=== PATIENT | female | born 1955 | race Caucasian/White ===

== ENCOUNTER 2018-06-07 18:12 | Inpatient (IN) | payer OTHER ==
[~2018-06-07] VITALS: Ht 157.5 cm; Wt 65.8 kg
[~2018-06-07 18:12] MED LIST: LISINOPRIL-HCT1 EAC1 PO; LISINOPRIL20 MG PO; MOTRIN 600 MG600 MG PO; PERCOCET 325 MG1 TA2 PO; PREDNISONE10 M2 PO
[2018-06-07 18:49] LABS: ABSOLUTE BASOPHIL COUNT 0 /CUMM (0.0-0.2); ABSOLUTE EOSINOPHIL COUNT 0 /CUMM (0.0-0.7); ABSOLUTE GRANULOCYTE CT 3.9 /CUMM (1.4-6.5); ABSOLUTE LYMPH COUNT 0.9 /CUMM (1.2-3.4); ABSOLUTE MONOCYTE COUNT 0.8 /CUMM (0.10-0.60); BASOPHIL % 0.2 % (0.0-2.0); EOSINOPHIL % 0.4 % (0-5); GRANULOCYTE % 70.3 % (42.2-75.2); HEMATOCRIT 45.9 % (37-47); MEAN CORPUSCULAR HGB 31.2 PG (27.0-31.0); MEAN CORPUSCULAR HGB CONC 34.4 G/DL (33.0-37.0); MEAN CORPUSCULAR VOLUME 90.7 FL (81.0-99.0); MEAN PLATELET VOLUME 7.6 FL (7.4-10.4); PLATELET COUNT 191 /CUMM (130-400); RBC DISTRIBUTION WIDTH 13.1 % (11.5-14.5); RED BLOOD CELL CT 5.06 /CUMM (4.20-5.40); WHITE BLOOD CELL COUNT 5.6 /CUMM (4.8-10.8)
--- NOTE | 2018-06-07 19:32 | ED GENERAL ADULT ---
History of Present Illness General Chief Complaint: General Adult Stated Complaint: PT IS HEARING THINGS POSSIBLE UTI Source: patient, family, old records Exam Limitations: no limitations Vital Signs & Intake/Output Vital Signs & Intake/Output Vital Signs Date Time Temp Pulse Resp B/P B/P Pulse O2 O2 Flow FiO2 Mean Ox Delivery Rate 06/07 1819 98.5 105 18 139/93 92 Room Air Allergies Coded Allergies: Penicillins (Severe, RASH/HIVES 05/08/16) Reconcile Medications Lisinopril/Hydrochlorothiazide (Lisinopril-Hctz 20-25 MG Tab) 1 EACH TABLET 1 TAB PO DAILY HEART (Reported) Prednisone 10 MG TABLET 1 TAB PO DAILY ANGIOEDEMA TAKE 4 TABS FOR 3 DAYS THEN TAKE 3 TABS FOR 3 DAYS THEN TAKE 2 TABS FOR 3 DAYS THEN TAKE 1 TAB FOR 3 DAYS Triage Note: PT STATES SHE STOPPED DRINKING TODAY IS THE 5TH DAY. PT STATES SHE IS HEARING THINGS AND SHE IS NOT SLEEPING THAT GREAT. PT STATES SHE ISN'T EATING EITHER. PT HAS BEEN DRINKING PLENTY OF WATER. PT ADMITS TO DRINKING 24 PACK A BEER DAILY. Triage Nurses Notes Reviewed? yes HPI: Patient is a heavy drinker and she stopped drinking approximately 5 days ago. Since then she has only been drinking water since she has no appetite. She denies any nausea or vomiting. Son states that over the past 3 nights she has been having increasing hallucinations and is To the Point That at 2:00 in the Morning Here to Take Her outside to Her That Nobody Was Trying to Break in the House. Patient Has Been Tremulous. Her Son Is Very Concerned for Her so He Brought Her in for Evaluation. Past History Travel History Traveled to [place] past 21 day No Medical History Any Pertinent Medical History? 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 No Review of Systems Review of Systems Constitutional: Reports: no symptoms. EENTM: Reports: no symptoms. Respiratory: Reports: no symptoms. Cardiovascular: Reports: no symptoms. GI: Reports: no symptoms. Genitourinary: Reports: no symptoms. Musculoskeletal: Reports: no symptoms. Skin: Reports: no symptoms. Neurological/Psychological: Reports: see HPI. Hematologic/Endocrine: Reports: no symptoms. Immunologic/Allergic: Reports: no symptoms. All Other Systems: Reviewed and Negative Physical Exam Physical Exam General Appearance: well developed/nourished, alert, awake, anxious, moderate distress Head: atraumatic, normal appearance Eyes: Bilateral: PERRL, EOMI. Ears, Nose, Throat: normal pharynx, normal ENT inspection, hearing grossly normal Neck: normal inspection, supple, full range of motion Respiratory: normal breath sounds, chest non-tender, no respiratory distress, lungs clear Cardiovascular: normal peripheral pulses, tachycardia Gastrointestinal: normal bowel sounds, soft, non-tender, no organomegaly Back: normal inspection, normal range of motion Extremities: normal inspection, normal capillary refill, normal range of motion, no edema Neurologic/Psych: no motor/sensory deficits, awake, alert, oriented x 3, normal gait, normal mood/affect Skin: intact, normal color, warm/dry Lymphatic: no anterior cervical steven Core Measures ACS in differential dx? No CVA/TIA Diagnosis: No Sepsis Present: No Sepsis Focused Exam Completed? No Progress Differential Diagnoses I considered the following diagnoses in my evaluation of the patient: [Delirium in the setting of hyponatremia, alcohol withdrawal, electrolyte abnormality] Plan of Care: Orders Procedure Date/time Status CULTURE,URINE 06/07 2027 Active Pathway - chart 06/07 2008 Active Pathway - chart 06/07 2006 Active Patient Data 06/07 2006 Active Code Status 06/07 2006 Active Lab Add-on Test 06/07 1958 Active Patient Data 06/07 1953 Active Admit to inpatient 06/07 1950 Active Add-on Test (ER Only) 06/07 1950 Active Add-on Test (ER Only) 06/07 193 Active URINE LYTES, SPOT 06/07 193 Active EKG 06/07 193 Active URIC ACID 06/07 1827 Active THYROID STIMULATING HORMONE 06/07 182 Active TROPONIN LEVEL 06/07 182 Active SERUM OSMOLALITY 06/07 182 Active MAGNESIUM 06/07 1827 Active CORTISOL PM 06/07 182 Active URINALYSIS 06/07 1821 Complete ETHANOL 06/07 1821 Active COMPREHENSIVE METABOLIC PANEL 06/07 1821 Active CBC WITHOUT DIFFERENTIAL 08/27 1821 Complete House Staff 06/07 UNK Active Lab Add-on Test 06/07 UNK Active VTE Mechanical Prophylaxis 06/07 UNK Active CIWA 06/07 UNK Active Current Medications Sig/Melissa Start time Last Medication Dose Stop Time Status Admin Acetaminophen 650 MG Q6P PRN 06/07 2015 UNVr (Tylenol) Acetaminophen 1,000 MG Q6P PRN 06/07 2015 UNVr (Ofirmev) Cyanocobalamin/ 1 BAG ONCE ONE 06/07 1945 AC Thiamine/Pyridoxine 06/08 344 (Vitamin in I.V.) Sodium Chloride 1,000 ML (Normal Saline 0.9%) Sodium Chloride 1,000 ML ONCE ONE 06/07 1945 AC (Normal Saline 0.9%) 06/08 0224 Laboratory Tests 06/07/182005: Serum Osmolality Cancelled, Uric Acid Cancelled, Cortisol AM Sample Cancelled, Ur Random Creatinine Cancelled, Ur Random Sodium Cancelled, Ur Random Potassium Cancelled, Fraction Sodium Excret Cancelled 06/07/187: Anion Gap 14, Estimated GFR > 60, BUN/Creatinine Ratio 12.9, Glucose 127 H, Serum Osmolality Pending, Uric Acid Pending, Calcium 10.2, Magnesium 1.8, Total Bilirubin 1.9 H, AST 49 H, ALT 45, Alkaline Phosphatase 93, Troponin I 0.02, Total Protein 8.1, Albumin 4.7, Globulin 3.4, Albumin/Globulin Ratio 1.4, TSH 2.340, Cortisol PM Sample Pending, CBC w Diff NO MAN DIFF REQ, RBC 5.06, MCV 90.7, MCH 31.2 H, MCHC 34.4, RDW 13.1, MPV 7.6, Gran % 70.3, Lymphocytes % 15.3 L, Monocytes % 13.8 H, Eosinophils % 0.4, Basophils % 0.2, Absolute Granulocytes 3.9, Absolute Lymphocytes 0.9 L, Absolute Monocytes 0.8 H, Absolute Eosinophils 0, Absolute Basophils 0, Serum Alcohol < 10.0, Urinalysis LIGHT H, Urine Color YEL, Urine Clarity CLEAR, Urine pH 7.0, Ur Specific [place] 1.020, Urine Protein NEG, Urine Ketones TRACE H, Urine Nitrite NEG, Urine Bilirubin NEG, Urine Urobilinogen 1.0, Ur Leukocyte Esterase NEG, Ur Microscopic SEDIMENT EXAMINED, Urine RBC 1-3, Urine WBC 1-3 H, Ur Epithelial Cells RARE, Urine Bacteria FEW H, Urine Hemoglobin TRACE-INTACT, Urine Glucose NEG 06/07/181824: Ur Random Creatinine 62.1, Ur Random Sodium 71, Ur Random Potassium 66.8, Fraction Sodium Excret Pending Microbiology 06/07 1827 URINE ROUT: Urine Culture - RECD Diagnostic Imaging: Viewed by Me: Radiology Read. Discussed w/RAD: Radiology Read. Initial ED EKG: NSR, LVH, nonspecific ST T wave chg Prior EKG: unchanged Rhythm Strip: normal sinus rhythm Departure Departure Disposition: STILL A PATIENT Condition: Critical Clinical Impression Primary Impression: Acute delirium Secondary Impressions: Alcohol withdrawal, Hypokalemia, Hyponatremia Referrals: Michelle Davila APRN (PCP/Family) Departure Forms: Customer Survey General Discharge Information Admission Note Spoke With: Mary Lou Blount MD Documentation of Exam: Documentation of any treatments & extenuating circumstances including Concerns Regarding Discharge (functional status, medication knowledge or non-compliance, living conditions, etc.) that warrant an admission rather than observation: [ICU ADMISSION, SODIUM REPLACEMENT,POTASSIUM REPLACEMENT, ATIVAN PER MARGARITA, SOCIAL WORK CONSULT, RENAL CONSULT] Critical Care Note Critical Care Note Critical Care Time: mins: (90 min)
[2018-06-07 19:40] VITALS: BP 148/76
--- NOTE | 2018-06-07 19:57 | History & Physical ---
Sherlyn Mckeon MD 06/07/181955: General Information and HPI MD Statement: I have seen and personally examined HEMA TEE and documented this H&P. The patient is a 62 year old F who presented with a patient stated chief complaint of [hearing things]. Source of Information: patient, old records, EMS Exam Limitations: no limitations History of Present Illness: Patient is a 62 YO F with PMH significant for HTN, active smoking and alcohol consumption presented to [place] with hearing voices. Patient had long standing history of alcohol consumption, ON and OFF multiple times. She started drinking this time for the past 7-10months per son, she stopped all of a suddden 5 days ago. She was unable to eat well and started drinking lot of water since then. She usually drinks 6-12pack beers each day. She only sustained tremulousness after her abstinence, denies any loss of consiousness, seizures, headache, feeling heart rate, sweating. Per son yesterday night she woke him around 10pm saying that she hears landlord screaming out. He brought her out saying no one is there. According to him this is going on for the past 5 days on and off, never had similar episodes in the past. PMH HTN Large mole removed from right hand 2-3 yrs ago due to concern of malignancy smoking Alcohol Allergies Amoxicillin Medications Amlodipine 10mg daily HCTZ 25mg daily Surgery Appendectomy Allergies/Medications Allergies: Coded Allergies: Penicillins (Severe, RASH/HIVES 05/08/16) Home Med list Amlodipine Besylate 10 MG TABLET 1 TAB PO DAILY blood pressure (Reported) Hydrochlorothiazide 25 MG TABLET 1 TAB PO DAILY blood pressure (Reported) Compliance With Home Meds: GOOD Past History Travel History Traveled to [place] past 21 day No Medical History Neurological: NONE EENT: NONE Cardiovascular: hypertension Respiratory: NONE Gastrointestinal: NONE Hepatic: NONE Renal: NONE Musculoskeletal: NONE Psychiatric: alcohol dependence Endocrine: NONE Blood Disorders: NONE Cancer(s): 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 Home Who Do You Live With? son Services at Home: None Smoking Status: Current Everyday Smoker ETOH Use: alcoholic Illicit Drug Use: denies illicit drug use Functional Ability ADLs Independent: dressing, eating, toileting, bathing. Ambulation: independent IADLs Needs Assist: shopping, housework, finances, food prep, telephone, transportation, medication admin. Review of Systems Review of Systems Constitutional: Reports: see HPI. EENTM: Reports: see HPI. Cardiovascular: Reports: see HPI. Respiratory: Reports: see HPI. GI: Reports: see HPI. Exam & Diagnostic Data Last 24 Hrs of Vital Signs/I&O Vital Signs Date Time Temp Pulse Resp B/P B/P Pulse O2 O2 Flow FiO2 Mean Ox Delivery Rate 06/07 1819 98.5 105 18 139/93 92 Room Air Physical Exam General Appearance Alert, Oriented X3, Cooperative Skin No Rashes, multiple skin tags on face, moles on her back Skin Temp/Moisture Exam: Warm/Dry Sepsis Skin Exam (color): Normal for Ethnicity HEENT Atraumatic, PERRLA Neck Supple, No JVD Cardiovascular Regular Rate, Normal S1, Normal S2 Lungs Clear to Auscultation, Normal Air Movement Abdomen Normal Bowel Sounds, Soft, No Tenderness Neurological Normal Speech, Strength at 5/5 X4 Ext, Normal Tone, Sensation Intact Extremities No Clubbing, No Cyanosis, No Edema Vascular Normal Pulses, Pulses Symmetrical Body Front and Back (Adult) 1) multiple skin tags 2) multiple moles - normal color, size Last 24 Hrs of Labs/Dav: Laboratory Tests 06/07/182052: Methadone Screen Cancelled, Barbiturate Screen Cancelled, Ur Phencyclidine Scrn Cancelled, Amphetamines Screen Cancelled, U Benzodiazepines Scrn Cancelled, Urine Cocaine Screen Cancelled, Urine Cannabis Screen Cancelled 06/07/182005: Serum Osmolality Cancelled, Uric Acid Cancelled, Cortisol AM Sample Cancelled, Ur Random Creatinine Cancelled, Ur Random Sodium Cancelled, Ur Random Potassium Cancelled, Fraction Sodium Excret Cancelled 06/07/181826: Haptoglobin Pending 06/07/181826: Anion Gap 14, Estimated GFR > 60, BUN/Creatinine Ratio 12.9, Glucose 127 H, Serum Osmolality 240 L, Uric Acid 4.7, Calcium 10.2, Magnesium 1.8, Total Bilirubin 1.9 H, Direct Bilirubin 0.6 H, AST 49 H, ALT 45, Alkaline Phosphatase 93, Lactate Dehydrogenase 389, Troponin I 0.02, Total Protein 8.1, Albumin 4.7, Globulin 3.4, Albumin/Globulin Ratio 1.4, TSH 2.340, Cortisol PM Sample 16.4 H, CBC w Diff NO MAN DIFF REQ, RBC 5.06, MCV 90.7, MCH 31.2 H, MCHC 34.4, RDW 13.1, MPV 7.6, Gran % 70.3, Lymphocytes % 15.3 L, Monocytes % 13.8 H, Eosinophils % 0.4, Basophils % 0.2, Absolute Granulocytes 3.9, Absolute Lymphocytes 0.9 L, Absolute Monocytes 0.8 H, Absolute Eosinophils 0, Absolute Basophils 0, Serum Alcohol < 10.0, Urinalysis LIGHT H, Urine Color YEL, Urine Clarity CLEAR, Urine pH 7.0, Ur Specific [place] 1.020, Urine Protein NEG, Urine Ketones TRACE H, Urine Nitrite NEG, Urine Bilirubin NEG, Urine Urobilinogen 1.0 , Ur Leukocyte Esterase NEG, Ur Microscopic SEDIMENT EXAMINED, Urine RBC 1-3, Urine WBC 1-3 H, Ur Epithelial Cells RARE, Urine Bacteria FEW H, Urine Hemoglobin TRACE-INTACT, Urine Glucose NEG 06/07/18 1825: Urine Opiates Screen < 100, Methadone Screen < 40, Barbiturate Screen < 60, Ur Phencyclidine Scrn < 6.00, Amphetamines Screen < 100, U Benzodiazepines Scrn < 85, Urine Cocaine Screen < 50, Urine Cannabis Screen < 5.00, Urine Osmolality 399, Ur Random Creatinine 62.1, Ur Random Sodium 71, Ur Random Potassium 66.8, Fraction Sodium Excret 0.7 Microbiology 06/07 2145 UPPER RESP: Surveillance Culture - ORD 06/07 2145 GI: Surveillance Culture - ORD 06/07 182 URINE ROUT: Urine Culture - RECD Assessment/Plan Assessment: Patient is a 60-year-old female with past history significant for HTN on HCTZ, active smoking, active alcohol consumption was brought in by her son to ER with concerns of hearing voices for the past 5 days after stopping alcohol consumption abruptly. She did have tremulousness but denies any episodes of seizures, loss of consciousness, headache, palpitations. Patient is afebrile, heart rate of 105, blood pressure 139/93 mmHg saturating well on room air at presentation. She is alert oriented 3, moist mucous membranes, supple neck, clear lungs, S1, S2 normal, able to move all 4 extremities, normal tone, sensation, CN intact. Labs did show significant chemistry panel - sodium 116, potassium 2.2, chloride 67, bicarbonate 35. Calcium 10.2. Normal White count, H&H 15/45, platelet count of 191. Urinalysis consistent with trace ketones, 1-3 white count. Serum alcohol < 10. Toxic screening negative. Chest x-ray unremarkable. CT head unremarkable. Differential Acute change in mentation probably secondary to hyponatremia. She is alert and oriented and making good converstaions so the concern is active auditory hallucinations which could be due to altered sodium levels other possiblities are schizophrenia (depression episodes in the past), withdrawl related. Ruled out stroke with CT scan of head. Plan Euvolemic Hypotonic hyponatremia Serum osm - 240, urine osm - 399, Urine Na 79. She is on HCTZ but her FeNa <1. Normal renal function, normal glucose levels. Normal TSH and PM cortisol levels. Primary polydipsia and beer potomonia are expected given history of alcohol, tea and toast diet however lab findings are not consistent. Need to rule out malignancy. * Fluid restriction to 800ml * Sodium tablets if continues to get worse * TSH normal, check AM cortisol, check lipid panel in AM * CT scan of head - normal * Consider further evaluation with CT chest/abdomen/pelvis given active smoking * Neurochecks Q1hr * ICU panel Q4hr * Nephrology consult * Ideally should increase 6mEq in the next 24hrs. severe hypokalemia K of 2.2 at admission, probably due to alcohol related damage to renal tubules. * Aggressive repletion orally - Goal > 3.5 * Monitor for arrhythmia with continuous telemetry. Auditory hallucinations Probably due to decreased sodium levels. Other possiblities are withdrawl, ingestion of other drugs. Normal TSH. Physical exam completely normal. During my interaction she did not have any active hallucinations. * Neurochecks * Psych consult if persists * check TSH and cortisol levels Alcohol withdrawl 6-12 packs per day. No active signs of withdrawl except for tremulousness. * [facility] protocol - diagnostic * Thiamine/folic acid/multivitamin * No concern of wernikes at the moment but will proceed with high dose of thiamine active smoking * Nicotine patch HTN * Hold thiazide * Continue amlodipine for now Elevated bicarbonate level Hco3 level of 35. This is likely from hypokalemia, other possiblities are contraction alkalosis from diuretics. Patient appears euvolemic to me. Normal renal function. * Monitor with serial labs * If continues to get worse will consider carbonic anhydrase inhibitors. DVT prophylaxis SC heparin Code status Full code As Ranked By This Provider Problem List: 1. Hyponatremia 2. Alcohol withdrawal 3. Hypokalemia 4. Acute delirium Core Measures/Misc (06/28) Acute Coronary Syndrome ACS Diagnosis: No Congestive Heart Failure Congestive Heart Failure Diagnosis No Cerebrovascular Accident CVA/TIA Diagnosis: No VTE (View Protocol) VTE Risk Factors Acute Medical Illness No Mechanical VTE Prophylaxis d/t N/A MechProphylax Ordered No VTE Pharm Prophylaxis d/t NA PharmProphylax ordered Sepsis (View protocol) Sepsis Present: No If YES complete Sepsis Event Note If YES complete Sepsis Event Note Resident Review Statement Resident Statement: examined this patient, discussed with engineering intern, agreed with engineering intern, discussed with family, reviewed EMR data (avail), discussed with nursing , discussed with case mgmt, reviewed images, amended to note Other Findings: as above [facility]07[facility]18 2311: Core Measures/Misc (06/28) Sepsis (View protocol) If YES complete Sepsis Event Note If YES complete Sepsis Event Note Attending MD Review Statement Attending Statement Attending MD Statement: examined this patient, discuss w/resident/PA/DUMPER BULK SYSTEM, agreed w/resident/PA/DUMPER BULK SYSTEM, reviewed EMR data (avail) Attending Assessment/Plan: 62F PMH HTN, EtOH abuse presenting with 2 days of anxiety, tremor, and episodes of confusion. Patient is currently A&Ox3 and seems well, but per family she had some episodes where she thought she saw things that weren't there. She had stopped drinking 5 days prior. She voices no complaints at this time. Her physical exam is normal. Sodium was found to be 116, potassium 2.2. Serum osm are dilute, urine 399. No evidence of seizure like activity. 1. Acute hyponatremia 2. Hypokalemia 3. Alcohol withdrawal, uncomplicated Plan - Admit to ICU - Check BEP q4h - Fluid restriction - Full diet - Replete potassium aggressively - Nephrology consult - Ativan PRN CIWA - Stop thiazide - Calculate FE(Urea) - DVT PPx
--- NOTE | 2018-06-07 20:27 | RADIOLOGY REPORT ---
EXAMINATION: XR PORTABLE CHEST CLINICAL INFORMATION: Delirium COMPARISON: None TECHNIQUE: Portable frontal view of the chest was obtained. 7:47 PM FINDINGS: Exam is apical lordotic. Lungs are clear. No pulmonary vascular congestion. There is no pleural effusion. The heart size is normal. The cardiac and mediastinal contours are normal. There are calcifications of the thoracic aorta. There are multilevel degenerative changes of dorsal spine. IMPRESSION: Unremarkable examination.
[2018-06-07 20:40] VITALS: BP 148/76
[2018-06-07 21:40] VITALS: BP 127/72
--- NOTE | 2018-06-07 21:56 | CT SCAN REPORT ---
EXAMINATION: CT HEAD WITHOUT CONTRAST CLINICAL INFORMATION: Hypernatremia. Evaluate for malignancy, edema, or stroke. COMPARISON: CT head 03/12/2016. TECHNIQUE: Contiguous axial imaging was performed from the skull base to vertex without intravenous administration of contrast. DLP: 598.20 mGy-cm FINDINGS: There is no acute intracranial hemorrhage or abnormal extra-axial collection. No intracranial mass effect or midline shift. Lateral and third ventricles are proportionate to the subarachnoid spaces. No hydrocephalus. Gardner-white matter differentiation is grossly preserved and there is no evidence of acute territorial infarct. The calvarium and skull base are intact. Mastoid air cells and middle ear cavities are well aerated. Visualized paranasal sinuses are well aerated. IMPRESSION: Unremarkable CT scan of the head. No evidence of acute territorial infarct or hemorrhage.
[2018-06-07 22:30] VITALS: BP 120/70
[2018-06-07] MEDS ORDERED: HYDROCHLOROTHIA25 M1 PO (22:34)
[2018-06-07] MEDS ORDERED: AMLODIPINE BESY10 M1 PO (22:34)
--- NOTE | 2018-06-07 23:14 | Admission Certification ---
Admission Certification Certification Statement - As attending physician, I certify that at the time of - admission, based on clinical presentation, severity of - symptoms, need for further diagnostic testing and - therapeutic interventions, and risk of adverse outcomes - without in-hospital treatment, in my clinical assessment, - this patient requires an acute hospital stay for a minimum - of two nights or longer. I have also considered psychsocial - factors such as support system, advanced age, financial - issues, cognitive issues, and failed out-patient treatments, - past re-admission history, safety of patient, and lack of - compliance as applicable. Specific rationale supporting this admission is: Sodium 116 with confusion
[2018-06-08] VITALS (8 sets, daily range): BP systolic 112–133; BP diastolic 64–80
--- NOTE | 2018-06-08 07:34 | Cons- CRCU ---
See Addendum General Information and HPI Consulting Request Date of Consult: 06/08/18 Requested By: Jose Alejandro JUÁREZ Source of Information: patient, old records History of Present Illness: Patient is a 62 YO F with PMH significant for HTN, active smoking and alcohol consumption presented to [facility] with hearing voices. Patient had long standing history of alcohol consumption, ON and OFF multiple times. She started drinking this time for the past 7-10months per son, she stopped all of a suddden 5 days ago. She was unable to eat well and started drinking lot of water since then. She usually drinks 6-12pack beers each day. She only sustained tremulousness after her abstinence, denies any loss of consiousness, seizures, headache, feeling heart rate, sweating. Per son yesterday night she woke him around 10pm saying that she hears landlord screaming out. He brought her out saying no one is there. According to him this is going on for the past 5 days on and off, never had similar episodes in the past. ON MY EVALUATION: Patient states that she has been drinking for the past 7-10 months roughly 6-12 beers a day, and quit cold tukery 6 days ago. After quitting, she had nausea and did not want to eat much, and so drank roughly 10 small water bottles a day which is double her normal intake of 5 small water bottles. She also states that she had started HCTZ several months ago and never had electrolytes checked. She denies any current complaints, states that she has not had any auditory or visual hallucinations and has been scoring low on CIWA score. She denies fevers, chills, night sweats, weight loss, blurred vision, chest pains, shrotness of breath, abdominal pains, urinary symptoms, lower extremity swelling. I SPOKE WITH sister over the phone today. Per sister, patient was seen shaking and losing weight 2 weeks ago when sister last saw her. Patients last year and she has been recieving his social security payments and thus has been drinking more as she can afford more beer per sister. Normally patient and sister talk 2-3x/week over the phone, but patient stopped calling sister 1 week ago. Sister had talked to patients son who said that his mother was hallucinating, and sister encouraged the son to take patient to the ED. Sister is Stella Brock, cell phone [phone] ; house phone [phone]. Allergies/Medications Allergies: Coded Allergies: Penicillins (Severe, RASH/HIVES 05/08/16) Home Med List: Amlodipine Besylate 10 MG TABLET 1 TAB PO DAILY blood pressure (Reported) Hydrochlorothiazide 25 MG TABLET 1 TAB PO DAILY blood pressure (Reported) Current Medications: Current Medications Sig/Melissa Start time Last Medication Dose Route Stop Time Status Admin Acetaminophen 650 MG Q6P PRN 06/07 2015 AC PO Acetaminophen 1,000 MG Q6P PRN 06/07 2015 AC IV Amlodipine Besylate 10 MG DAILY 06/08 0900 AC 06/08 PO 0843 Cyanocobalamin/ 1 BAG ONCE ONE 06/07 194 CAN Thiamine/Pyridoxine IV 06/08 0344 Sodium Chloride 1,000 ML Desmopressin Acetate 0.1 MG ONCE ONE 06/08 1030 DC PO 06/08 1031 Folic Acid 1 MG DAILY 06/08 09 AC PO Heparin Sodium 5,000 UNIT Q8 06/07 2200 AC 06/08 (Porcine) SC 0545 Lorazepam 0 .STK-MED ONE 06/07 1958 DC .ROUTE Lorazepam 1 MG ONCE ONE 06/07 1945 DC 06/07 IV 06/07 1942004 Magnesium Oxide 400 MG ONE ONE 06/07 2345 CAN PO 06/07 2346 Magnesium Sulfate 1 GM ONCE ONE 06/07 2100 CAN Dextrose/Water 100 ML IV 06/08 0059 Magnesium Sulfate 0 .STK-MED ONE 06/07 2024 DC .ROUTE Multivitamins 1 TAB DAILY 06/08 0915 AC PO Nicotine 21 MG DAILY 06/08 09 AC TOP Potassium Chloride 40 MEQ ONCE ONE 06/08 2345 CAN PO 06/08 2346 Potassium Chloride 10 MEQ Q1H 06/08 0630 DC 06/08 IV 06/08 0731 0709 Potassium Chloride 40 MEQ Q1 06/08 0530 DC 06/08 PO 06/08 0701 0713 Potassium Chloride 40 MEQ ONCE ONE 06/08 0430 DC 06/08 PO 06/08 0431 0545 Potassium Chloride 40 MEQ ONCE ONE 06/08 0300 DC 06/08 PO 06/08 0301 0449 Potassium Chloride 40 MEQ ONCE ONE 06/08 0200 DC 06/08 PO 06/08 0201 0449 Potassium Chloride 40 MEQ ONCE ONE 06/08 0100 DC 06/08 PO 06/08 0101 0153 Potassium Chloride 40 MEQ ONCE ONE 06/08 0030 DC 06/08 PO 06/08 0031 0000 Potassium Chloride 0 .STK-MED ONE 06/07 2351 DC PO Potassium Chloride 40 MEQ ONCE ONE 06/07 2130 DC PO 06/07 213 Potassium Chloride 40 MEQ ONCE ONE 06/07 2100 DC 06/07 PO 06/07 2101 2355 Potassium Chloride 40 MEQ ONCE ONE 06/07 2100 CAN PO 06/07 2101 Potassium Chloride 0 .STK-MED ONE 06/07 2030 DC PO Potassium Chloride 40 MEQ ONCE ONE 06/07 1945 DC 06/07 PO 06/07 1946 2005 Potassium Chloride 10 MEQ ONCE ONE 06/07 1945 DC 06/07 IV 06/07 Potassium Chloride 10 MEQ ONCE ONE 06/07 194 DC 06/07 IV 06/07 1946 2143 Sodium Chloride 1,000 ML ONCE ONE 06/07 1945 CAN IV 06/08 0224 Thiamine HCl 100 MG TID 06/07 2241 AC 06/08 Sodium Chloride 50 ML IV 06/10 1459 0914 Thiamine HCl 0 .STK-MED ONE 06/077 DC .ROUTE Review of Systems Review of Systems Constitutional: Reports: see HPI, weakness, unexplained weight loss (per sister). Denies: chills, diaphoresis, fever, malaise. EENTM: Denies: blurred vision, double vision, visual changes. Cardiovascular: Denies: chest pain, edema, palpitations, syncope. Respiratory: Denies: short of breath, wheezing. GI: Denies: abdominal pain, diarrhea, bowel incontinence. Genitourinary: Denies: dysuria, frequency, hematuria. 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 Home Who Do You Live With? son Services at Home: None Smoking Status: Current Everyday Smoker (40+ pack years) ETOH Use: alcoholic Illicit Drug Use: denies illicit drug use Functional Ability ADLs Independent: dressing, eating, toileting, bathing. Ambulation: independent IADLs Needs Assist: shopping, housework, finances, food prep, telephone, transportation, medication admin. Exam & Diagnostic Data Last 24 Hrs of Vital Signs/I&O Vital Signs Date Time Temp Pulse Resp B/P B/P Pulse O2 O2 Flow FiO2 Mean Ox Delivery Rate 06/08 0857 97.9 65 20 122/74 96 Room Air 06/08 0600 97.7 91 20 130/80 06/08 0400 97.7 91 20 130/80 06/08 0400 99 Room Air 06/08 0200 68 20 124/64 06/08 0000 97.7 88 20 112/72 06/08 0000 97.7 88 20 11272 97 Room Air 06/08 0000 97 Room Air 06/07 2230 97.3 80 18 120/70 06/07 2230 97 Room Air 06/07 2140 98.5 83 20 127/72 06/07 2100 98 Room Air 06/07 2050 88 20 148/76 98 Room Air 06/07 2040 99.0 85 18 148/76 06/07 1940 98.7 85 20 148/76 06/07 1819 98.5 105 18 139/93 92 Room Air Intake & Output 06/08 1600 06/08 0800 06/08 0000 Intake Total 425 482 Output Total 1000 250 Balance -575 232 Intake, IV 50 482 Intake, Oral 375 Output, Urine 1000 250 Patient 146 lb Weight Weight Bed scale Measurement Method Physical Exam General Appearance: no apparent distress, alert, comfortable Head: atraumatic, normal appearance Eyes: Bilateral: normal appearance, PERRL, EOMI. Neck: normal inspection Respiratory: no respiratory distress, lungs clear, decreased breath sounds Cardiovascular: regular rate/rhythm, normal peripheral pulses Peripheral Pulses: 2+ dorsalis pedis (R), 2+ dorsalis pedis (L) Gastrointestinal: soft, non-tender Back: normal inspection Extremities: normal inspection Last 48 Hrs of Labs/Dav: Laboratory Tests 06/08/18 0645: Anion Gap 7, Estimated GFR > 60, Glucose 95, Calcium 9.9, Phosphorus 3.3, Magnesium 2.3, Total Bilirubin 2.1 H, AST 50 H, ALT 39, Albumin 4.4, Triglycerides 61, Cholesterol 212 H, LDL Cholesterol, Calc 107, HDL Cholesterol 93 H, Cholesterol/HDL Ratio 2, Cortisol AM Sample 21.9, CBC w Diff NO MAN DIFF REQ, RBC 4.75, MCV 90.2, MCH 31.6 H, MCHC 35.0, RDW 13.3, MPV 7.9, Gran % 58.3, Lymphocytes % 23.1, Monocytes % 16.3 H, Eosinophils % 1.7, Basophils % 0.6, Absolute Granulocytes 2.1, Absolute Lymphocytes 0.8 L, Absolute Monocytes 0.6, Absolute Eosinophils 0.1, Absolute Basophils 0, Hepatitis A IgM Ab NONREACTIVE, Hep Bs Antigen NONREACTIVE, Hep B Core IgM Ab Conf NONREACTIVE, Hepatitis C Antibody NONREACTIVE 06/08/18 0230: Anion Gap 9, Estimated GFR > 60, Glucose 100 H, Calcium 9.5, Phosphorus 3.7, Magnesium 2.2, Total Bilirubin 1.9 H, Direct Bilirubin 0.5 H, AST 46 H, ALT 38, Alkaline Phosphatase 82, Albumin 4.2 06/07/18 2300: Anion Gap 10, Estimated GFR > 60, Glucose 109 H, Calcium 9.6, Phosphorus 3.6, Magnesium 2.2, Total Bilirubin 1.8 H, AST 42 H, ALT 39, Albumin 4.1, Free T4 1.46 06/07/182052: Methadone Screen Cancelled, Barbiturate Screen Cancelled, Ur Phencyclidine Scrn Cancelled, Amphetamines Screen Cancelled, U Benzodiazepines Scrn Cancelled, Urine Cocaine Screen Cancelled, Urine Cannabis Screen Cancelled 06/07/182005: Serum Osmolality Cancelled, Uric Acid Cancelled, Cortisol AM Sample Cancelled, Ur Random Creatinine Cancelled, Ur Random Sodium Cancelled, Ur Random Potassium Cancelled, Fraction Sodium Excret Cancelled 06/07/18 1827: Haptoglobin Pending 06/07/18 1827: Anion Gap 14, Estimated GFR > 60, BUN/Creatinine Ratio 12.9, Glucose 127 H, Serum Osmolality 240 L, Uric Acid 4.7, Calcium 10.2, Magnesium 1.8, Total Bilirubin 1.9 H, Direct Bilirubin 0.6 H, AST 49 H, ALT 45, Alkaline Phosphatase 93, Lactate Dehydrogenase 389, Troponin I 0.02, Total Protein 8.1, Albumin 4.7, Globulin 3.4, Albumin/Globulin Ratio 1.4, TSH 2.340, Cortisol PM Sample 16.4 H, CBC w Diff NO MAN DIFF REQ, RBC 5.06, MCV 90.7, MCH 31.2 H, MCHC 34.4, RDW 13.1, MPV 7.6, Gran % 70.3, Lymphocytes % 15.3 L, Monocytes % 13.8 H, Eosinophils % 0.4, Basophils % 0.2, Absolute Granulocytes 3.9, Absolute Lymphocytes 0.9 L, Absolute Monocytes 0.8 H, Absolute Eosinophils 0, Absolute Basophils 0, Serum Alcohol < 10.0, Urinalysis LIGHT H, Urine Color YEL, Urine Clarity CLEAR, Urine pH 7.0, Ur Specific Mcgrath 1.020, Urine Protein NEG, Urine Ketones TRACE H, Urine Nitrite NEG, Urine Bilirubin NEG, Urine Urobilinogen 1.0 , Ur Leukocyte Esterase NEG, Ur Microscopic SEDIMENT EXAMINED, Urine RBC 1-3, Urine WBC 1-3 H, Ur Epithelial Cells RARE, Urine Bacteria FEW H, Urine Hemoglobin TRACE-INTACT, Urine Glucose NEG 06/07/18 1825: Urine Opiates Screen < 100, Methadone Screen < 40, Barbiturate Screen < 60, Ur Phencyclidine Scrn < 6.00, Amphetamines Screen < 100, U Benzodiazepines Scrn < 85, Urine Cocaine Screen < 50, Urine Cannabis Screen < 5.00, Urine Osmolality 399, Ur Random Creatinine 62.1, Ur Random Sodium 71, Ur Random Potassium 66.8, Fraction Sodium Excret 0.7 Assessment/Plan CRCU Impression/Plan: 62 YO F with PMH significant for HTN on HCTZ, active smoking and alcohol consumption presented to [place] with hearing voices. Recently self-detoxed at home 6 days ago after drinking 6-12 beers a day x 7-10 months, and drank copious amounts of water, roughly 10 small bottles a day whereas normally drinks 5. Is no longer complaining of hallucinations and denies any weakness, tremors, anxiety. In ICU due to hyponatremia, frequent neuro checks given risk of CPM Respiratory: stable, current everyday smoker Sats at 97% on room air; rate of 20 nonlabored. Significant smoking history >40 pack years, CXR negative for masses in ED. 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 Will f/u with ICU lab bundle q4 Cardiovascular: stable Rate 68-105(tachy on admission no other episodes of tachycardia), NSR, 112-148/ 64-80 on amlodipine; HCTZ held; no appreciable murmurs, no edema or JVD noted Hematological: stable H/H 15/42.8 . No evidence of bleeds Metabolic: Hypotonic euvolemic hyponatremia; Hypokalemia; Metabolic Alkalosis, Elevated Liver Enzymes and bilirubin; Hx of Alcoholism -Sodium on presentation was 116. Currently 123; HCTZ is held and is being fluid restricted to 800. Nephro consult is appreciated, will recieve 1mcg subq DDAVP and labs q4. Correct no more than 8mEq/day; Sodium will be partially corrected after correcting potassium. If sodium goes up after administration of DDAVP will start D5W. Thyroid tests WNL; AM cortisol normal. Serum OSM 240; Urine OSM 399, Ajit 79, FeNA <1. -Potassium has been corrected, initially was 2.2, after oral and IV repletion is now 4.3. Phosphorus and magnesium WNL. No EKG changes on admission, but will repeat one to confirm. -Met alkalosis likely 2/2 HCTZ use and contraction alkalosis per discussion at rounds and with nephro, bicarbonate currently 34. Will monitor with ICU bundle q4 -AST at 50, TBili 2.1 and trending upwards; will obtain RUQ U/S. Pt did eat breakfast this AM so likely will happen tomorrow AM. Hepatic panel negative. -Is on Folate and Thiamine given hx of alcoholism. -Will obtain social work consult. Alimentary: stable -Tolerating regular diet Neurological: had auditory hallucination upon admission -Currently denies any tactile/auditory hallucinations -Neuro checks q1 -On CIWA, low scores -CT Head negative for any masses or trauma Nephro: stable -BUN/Cr 8/0.7 ; FeNA 0.7 DVT ppx: ALPS and Subq Heparin FULL CODE Consult Acknowledgment - Thank you for your consult request.
[2018-06-08 08:18] LABS: ABSOLUTE BASOPHIL COUNT 0 /CUMM (0.0-0.2); ABSOLUTE EOSINOPHIL COUNT 0.1 /CUMM (0.0-0.7); ABSOLUTE GRANULOCYTE CT 2.1 /CUMM (1.4-6.5); ABSOLUTE LYMPH COUNT 0.8 /CUMM (1.2-3.4); ABSOLUTE MONOCYTE COUNT 0.6 /CUMM (0.10-0.60); BASOPHIL % 0.6 % (0.0-2.0); EOSINOPHIL % 1.7 % (0-5); GRANULOCYTE % 58.3 % (42.2-75.2); HEMATOCRIT 42.8 % (37-47); MEAN CORPUSCULAR HGB 31.6 PG (27.0-31.0); MEAN CORPUSCULAR VOLUME 90.2 FL (81.0-99.0); MEAN PLATELET VOLUME 7.9 FL (7.4-10.4); PLATELET COUNT 178 /CUMM (130-400); RBC DISTRIBUTION WIDTH 13.3 % (11.5-14.5); RED BLOOD CELL CT 4.75 /CUMM (4.20-5.40); WHITE BLOOD CELL COUNT 3.6 /CUMM (4.8-10.8)
--- NOTE | 2018-06-08 10:49 | Cons- Nephrology ---
General Information and HPI Consulting Request Date of Consult: 06/08/18 Requested By: Mary Lou Blount MD Reason for Consult: Hyponatremia History of Present Illness: 62 yo female with history of hypertension, smoking, ethanal abuse admitted with change in mental status. She norally drinks 6-12 beers per day but stopped several days ago. She continued to drink a lot of water. She started hearing voices and was brought to the ED where labs were remarkable for serum sodim of 116, potassiumof 2.2, serum bicarb of 35. Uric acid was 4.7, BUN 9, creatinine of 0.7. She had been started on HCTZ seveal months ago, no follow up labs. Ajit was 71, U k 66.8, U osm 399. Overnight she received potassium replacement and was placed on fluid restriction Allergies/Medications Allergies: Coded Allergies: Penicillins (Severe, RASH/HIVES 05/08/16) Home Med List: Amlodipine Besylate 10 MG TABLET 1 TAB PO DAILY blood pressure (Reported) Hydrochlorothiazide 25 MG TABLET 1 TAB PO DAILY blood pressure (Reported) Current Medications: Current Medications Sig/Melissa Start time Last Medication Dose Route Stop Time Status Admin Acetaminophen 650 MG Q6P PRN 06/07 2015 AC PO Acetaminophen 1,000 MG Q6P PRN 06/07 2015 AC IV Amlodipine Besylate 10 MG DAILY 06/08 09 AC 06/08 PO 0843 Cyanocobalamin/ 1 BAG ONCE ONE 06/07 1945 CAN Thiamine/Pyridoxine IV 06/08 0344 Sodium Chloride 1,000 ML Desmopressin Acetate 0.1 MG ONCE ONE 06/08 1030 DC PO 06/08 1031 Folic Acid 1 MG DAILY 06/08 915 AC PO Heparin Sodium 5,000 UNIT Q8 06/07 2200 AC 06/08 (Porcine) SC 0545 Lorazepam 0 .STK-MED ONE 06/07 1958 DC .ROUTE Lorazepam 1 MG ONCE ONE 06/07 194 DC 06/07 IV 06/07 Magnesium Oxide 400 MG ONE ONE 06/07 2345 CAN PO 06/07 2346 Magnesium Sulfate 1 GM ONCE ONE 06/07 2100 CAN Dextrose/Water 100 ML IV 06/08 0059 Magnesium Sulfate 0 .STK-MED ONE 06/07 2024 DC .ROUTE Multivitamins 1 TAB DAILY 06/08 915 AC PO Nicotine 21 MG DAILY 06/08 0900 AC TOP Potassium Chloride 40 MEQ ONCE ONE 06/08 2345 CAN PO 06/08 2346 Potassium Chloride 10 MEQ Q1H 06/08 0630 DC 06/08 IV 06/08 0731 0709 Potassium Chloride 40 MEQ Q1 06/08 0530 DC 06/08 PO 06/08 0701 0713 Potassium Chloride 40 MEQ ONCE ONE 06/08 0430 DC 06/08 PO 06/08 0431 0545 Potassium Chloride 40 MEQ ONCE ONE 06/08 0300 DC 06/08 PO 06/08 0301 0449 Potassium Chloride 40 MEQ ONCE ONE 06/08 0200 DC 06/08 PO 06/08 0201 0449 Potassium Chloride 40 MEQ ONCE ONE 06/08 0100 DC 06/08 PO 06/08 0101 0153 Potassium Chloride 40 MEQ ONCE ONE 06/08 0030 DC 06/08 PO 06/08 0031 0000 Potassium Chloride 0 .STK-MED ONE 06/07 2351 DC PO Potassium Chloride 40 MEQ ONCE ONE 06/07 2130 DC PO 06/07 213 Potassium Chloride 40 MEQ ONCE ONE 06/07 2100 DC 06/07 PO 06/07 2101 2355 Potassium Chloride 40 MEQ ONCE ONE 06/07 2100 CAN PO 06/07 2101 Potassium Chloride 0 .STK-MED ONE 06/07 2030 DC PO Potassium Chloride 40 MEQ ONCE ONE 06/07 1945 DC 06/07 PO 06/07 1946 2005 Potassium Chloride 10 MEQ ONCE ONE 06/07 1945 DC 06/07 IV 06/07 1946 2005 Potassium Chloride 10 MEQ ONCE ONE 06/07 1945 DC 06/07 IV 06/07 194 2143 Sodium Chloride 1,000 ML ONCE ONE 06/07 1945 CAN IV 06/08 0224 Thiamine HCl 100 MG TID 06/07 2241 AC 06/08 Sodium Chloride 50 ML IV 06/10 1459 0914 Thiamine HCl 0 .STK-MED ONE 06/07 1957 DC .ROUTE Review of Systems Review of Systems: Negative except as noted above. 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 Home Who Do You Live With? son Services at Home: None Smoking Status: Current Everyday Smoker ETOH Use: alcoholic Illicit Drug Use: denies illicit drug use Functional Ability ADLs Independent: dressing, eating, toileting, bathing. Ambulation: independent IADLs Needs Assist: shopping, housework, finances, food prep, telephone, transportation, medication admin. Exam & Diagnostic Data Vital Signs and I&O Vital Signs Date Time Temp Pulse Resp B/P B/P Pulse O2 O2 Flow FiO2 Mean Ox Delivery Rate 06/08 0857 97.9 65 20 122/74 96 Room Air 06/08 0600 97.7 91 20 130/80 06/08 0400 97.7 91 20 130/80 06/08 0400 99 Room Air 06/08 0200 68 20 124/64 06/08 0000 97.7 88 20 112/72 06/08 0000 97.7 88 20 11272 97 Room Air 06/08 0000 97 Room Air 06/07 2230 97.3 80 18 120/70 06/07 2230 97 Room Air 06/07 2140 98.5 83 20 127/72 06/07 2100 98 Room Air 06/07 2050 88 20 148/76 98 Room Air 06/07 2040 99.0 85 18 148/76 06/07 1940 98.7 85 20 148/76 06/07 1819 98.5 105 18 139/93 92 Room Air Intake & Output 06/08 1600 06/08 0400 06/07 1600 06/07 0400 06/06 1600 06/06 0400 Intake Total 425 482 Output Total 1000 250 Balance -575 232 Intake, IV 50 482 Intake, Oral 375 Output, Urine 1000 250 Patient 146 lb Weight Weight Bed scale Measurement Method Physical Exam: NAD VS as above. Eyes: anicteric, PERRLA Neck: no mass or thyromegally Nodes: negative cervical/inguinal Skin: no rash or induration. CV: no rub or murmur Lungs: clear P&A Abd: non-tender, no organomegaly, BS positive Exts: no edema, 1+d pedal pulses Neuro: A&O, CN intact, no asterixis. Assessment/Plan Assessment/Recommendations Assessment: Hyponatremia which may be multifactorial in origin but includes effects of HCTZ, low solute and high fluid intake. Low potassium can cause shift of Na into cells so part of intial correction of Na occurs with potassium repletion, shift of Na back out. Metabolic alkalosis probably driven by diuretics and profound hypokalemia. Urine electrolytes with relatively high U osm, high U Na and U K suggestive of thiazide effect. Recommendations: Main risk is for too rapid correction and CPM. She is already up 7 meq/l from admission and would like to keep her here for another 24 hours before allow her to go up higher. I would therefore give her DDAVP 1 mcg sc now, continue to follow serum sodium every 4 hours. If sodium continues up after DDAVP could give some D5W. After 12-24 hours the DDAVP will wear off and sodium will rise again, but would try not to have it rise by more than 8 in any 24 hour period. Alcoholics are at particular risk for CPM.
--- NOTE | 2018-06-08 16:25 | ULTRASOUND REPORT ---
EXAMINATION: US ABDOMEN LIMITED CLINICAL INFORMATION: Increase in bilirubin. COMPARISON: None. TECHNIQUE: Real-time imaging of the right upper quadrant abdominal viscera was obtained. FINDINGS: PANCREAS: Normal. LIVER: The liver is normal in size and contour. It has diffusely increased echogenicity consistent with hepatic steatosis. There is a cyst in the right lobe of the liver which measures 2.8 x 2.7 x 2.7 cm, and a smaller cyst in the right lobe measures 1.3 x 1.3 x 1.4 cm. The appendix is not dilated. GALLBLADDER: The gallbladder is physiologically distended without evidence of stones, sludge, polyps, wall thickening or pericholecystic fluid. COMMON BILE DUCT: Normal in caliber measuring 0.4 cm in diameter. RIGHT KIDNEY: There is no hydronephrosis. No renal calculi or focal parenchymal lesions. The kidney measures 10.4 cm in maximum dimension. FREE FLUID: None. IMPRESSION: 1. The liver has diffusely increased echogenicity consistent with hepatic steatosis. There are 2 cysts in the right lobe of the liver. 2. The remainder of the study is unremarkable.
[2018-06-09] VITALS (8 sets, daily range): BP systolic 100–140; BP diastolic 60–80
--- NOTE | 2018-06-09 08:09 | PN- Resident CRCU ---
See Addendum Subjective HPI/CRCU Issues: Hypotonic euvolemic hyponatremia 24 Hour Events: Pt was hyperkalemic at 5.8 yesterday with peaked T waves; was given calcium, insulin, and one amp d50. Asymptomatic. Went for RUQ US which showed hepatic steatosis and two cysts. Overnight became agitated, tachycardic, ripped off monitor, attempted to leave without responding to nursing staff instructions to wait. Security was called, patient was placed in emerita, given 1mg ativan. This morning she continues to say that she wants to leave, needs to pay rent and "get things done" and will come back in 2-3 days. Tremulous, anxious. Psychiatry to see her. Denies hearing any voices at this time Objective Vital Signs & I&O Last 8 Hrs of Vitals and I&O: Intake & Output 06/09 1600 Intake Total Output Total Balance Patient 145 lb Weight Exam General Appearance: no apparent distress, alert, awake, anxious, agitated, tremulous Head: atraumatic Neck: normal inspection Respiratory: lungs clear, decreased breath sounds Cardiovascular: regular rate/rhythm Gastrointestinal: soft, non-tender Extremities: normal inspection, no edema Cranial Nerves: normal hearing, normal speech Skin: intact Skin Temp/Moisture Exam: Warm/Dry Sepsis Skin Exam (color): Normal for Ethnicity Current Medications: Current Medications Sig/Melissa Start time Last Medication Dose Route Stop Time Status Admin Acetaminophen 650 MG Q6P PRN 06/07 2015 AC 06/08 PO 2349 Acetaminophen 1,000 MG Q6P PRN 06/07 2015 IV Amlodipine Besylate 10 MG DAILY 06/08 0900 AC 06/09 PO 0909 Calcium Gluconate 1 GM ONCE ONE 06/08 1415 DC 06/08 Sodium Chloride 100 ML IV 06/08 1514 1423 Calcium Gluconate 0 .STK-MED ONE 06/08 1413 DC IV Desmopressin Acetate 1 MCG ONCE ONE 06/08 1115 DC 06/08 SC 06/08 1116 1231 Desmopressin Acetate 0.1 MG ONCE ONE 06/08 1030 CAN PO 06/08 1031 Dextrose 25 GM ONCE ONE 06/08 1415 DC 06/08 IV 06/08 1416 1425 Dextrose 0 .STK-MED ONE 06/08 1415 DC IV Dextrose/Water 1,000 ML Q6H 06/08 1830 DC 06/08 IV 1831 Dextrose/Water 1,000 ML .[id number] 06/08 1715 DC 06/08 IV 06/09 0634 1730 Folic Acid 1 MG DAILY 06/08 0915 AC 06/09 PO 1031 Heparin Sodium 5,000 UNIT Q8 06/07 2200 AC 06/09 (Porcine) SC 0708 Insulin Human Regular 10 UNITS ONCE ONE 06/08 1415 DC 06/08 IV 06/08 1416 1425 Insulin Human Regular 0 .STK-MED ONE 06/08 1414 DC .ROUTE Lorazepam 1 MG ONCE ONE 06/09 0115 DC 06/09 IV 06/09 0116 0119 Lorazepam 0 .STK-MED ONE 06/09 0107 DC .ROUTE Multivitamins 1 TAB DAILY 06/08 0915 AC 06/09 PO 1031 Nicotine 21 MG DAILY 06/08 0900 AC TOP Olanzapine 5 MG ONCE ONE 06/09 0045 DC IM 06/09 0046 Phosphate 250 MG PC AND AT BEDTIME 06/08 2100 DC 06/09 PO 06/09 0901 0909 Sodium Polystyrene 60 ML ONCE ONE 06/08 1730 DC 06/08 Sulfonate PO 06/08 1731 1730 Sodium Polystyrene 0 .STK-MED ONE 06/08 1730 DC Sulfonate .ROUTE Thiamine HCl 100 MG TID 06/07 2241 AC 06/09 Sodium Chloride 50 ML IV 06/10 1459 0910 Impression/Plan Impression/Problem List Impression: 62 YO F with PMH significant for HTN on HCTZ, active smoking and alcohol consumption presented to [facility] with hearing voices. Recently self-detoxed at home 6 days ago after drinking 6-12 beers a day x 7-10 months, and drank copious amounts of water, roughly 10 small bottles a day whereas normally drinks 5. Is no longer complaining of hallucinations and denies any weakness, tremors, anxiety. In ICU due to Hypotonic euvolemic hyponatremia, frequent neuro checks given risk of CPM Respiratory: stable, current everyday smoker Sats at 99% on room air; rate of 18-24 nonlabored. Significant smoking history > 40 pack years, CXR negative for masses in ED. States "I need to go outside and smoke a cigarette". Has nicotine patch on her eMAR. ID: stable Afebrile, hypothermic 96.0. Cardiovascular: stable Rate 56-114, sinus rhythym. Was tachycardic prior to ripping monitor off last night, likely due to agitation. 100-150/60-93 on amlodipine; HCTZ held; no appreciable murmurs, no edema or JVD noted Hematological: stable Metabolic: Hypotonic euvolemic hyponatremia (improving); Hypokalemia (resolved); Hyperkalemia (resolved), Metabolic Alkalosis (resolved), Elevated Liver Enzymes and bilirubin; Hx of Alcoholism -Sodium on presentation was 116. Currently 123; HCTZ is held and is being fluid restricted to 800. Nephro consult is appreciated, received 1mcg subq DDAVP and labs q4. Correct no more than 8mEq/day; Received D5W as sodium went up too high. Currently 123; can go up to 131 today. -Thyroid tests WNL; AM cortisol normal. Serum OSM 240; Urine OSM 399, Ajit 79, FeNA <1. -Potassium has been corrected, initially was 2.2, after oral and IV repletion oscar to 5.8. EKG showed peaked T waves; was given calcium gluconate, insulin and one amp d50. Currently is 4.1. -Phosphorus and magnesium WNL. -Met alkalosis likely 2/2 HCTZ use and contraction alkalosis per discussion at rounds and with nephro, bicarbonate currently 26. Will monitor with ICU bundle q4 -AST at 39, TBili 1.1. RUQ U/S showed hepatic steatosis with 2 liver cysts. Hepatic panel negative. -Is on Folate and Thiamine given hx of alcoholism. -Social work appreciated. Alimentary: stable -Tolerating regular diet Neurological: had auditory hallucination upon admission; 1mg ativan overnight after attempt to leave AMA currently on EMERITA. -Currently on emerita given agitation, unsafe ambulation. PSYCH to see patient to determine capacity to leave AMA -Currently denies any tactile/auditory hallucinations -Neuro checks q1 -On CIWA, low scores -CT Head negative for any masses or trauma Nephro: stable -BUN/Cr 11/0.6 ; FeNA 0.7 DVT ppx: ALPS and Subq Heparin FULL CODE Problem List: 1. Hyponatremia Pain Ratin Tomorrow's Labs & Rationales: ICU Bundle q4 to monitor sodium Plan DVT/Prophylaxis: mechanical, pharmacological
--- NOTE | 2018-06-09 10:58 | PN- Nephrology ---
Assessment/Plan Nephrology Assessment: Hyponatremia due to thiazide, low solute, high water intake. Stable in low 120s since given DDAVP. Can allow to increase up to around 130 today. Suggestion: Keep off DDAVP as effect of one time dose wears off, urine will dilute. Maintain fluid restrciton and q 4 h serum sodiums. Subjective Subjective: Agitated and not talking today although nods head appropriately. Objective Vital Signs and I&Os Vital Signs Date Time Temp Pulse Resp B/P B/P Pulse O2 O2 Flow FiO2 Mean Ox Delivery Rate 06/09 0909 86 120/74 06/09 0600 56 20 100/60 06/09 0400 96.0 56 18 111/73 06/09 0400 99 Room Air 06/09 0200 96.9 92 18 128/76 06/09 0000 97.7 114 20 140/80 06/09 0000 99 Room Air 06/09 0000 97.7 114 20 140/80 99 Room Air 06/08 2200 97.3 62 21 133/75 06/08 2000 97.3 60 20 125/72 06/08 1600 97.5 62 18 122/70 97 Room Air Intake & Output 06/09 1600 06/09 0400 06/08 1600 06/08 0400 06/07 1600 06/07 0400 Intake Total 150 1275 805 482 Output Total 522 162 9636 250 Balance 50 675 -1595 232 Intake, IV 775 150 482 Intake, Oral 150 500 655 Output, Urine 889 334 4654 250 Patient 145 lb 146 lb Weight Weight Bed scale Measurement Method Physical Exam: NAD VS as above Lung: clear CV: no rub Abd: nontender Exts: no edema Neuro : A&O Current Medications: Current Medications Sig/Melissa Start time Last Medication Dose Route Stop Time Status Admin Acetaminophen 650 MG Q6P PRN 06/07 2015 AC 06/08 PO 2349 Acetaminophen 1,000 MG Q6P PRN 06/07 2015 AC IV Amlodipine Besylate 10 MG DAILY 06/08 0900 AC 06/09 PO 0909 Calcium Gluconate 1 GM ONCE ONE 06/08 1415 DC 06/08 Sodium Chloride 100 ML IV 06/08 1514 1423 Calcium Gluconate 0 .STK-MED ONE 06/08 1413 DC IV Desmopressin Acetate 1 MCG ONCE ONE 06/08 1115 DC 06/08 SC 06/08 1116 1231 Desmopressin Acetate 0.1 MG ONCE ONE 06/08 1030 CAN PO 06/08 1031 Dextrose 25 GM ONCE ONE 06/08 1415 DC 06/08 IV 06/08 1416 1425 Dextrose 0 .STK-MED ONE 06/08 1415 DC IV Dextrose/Water 1,000 ML Q6H 06/08 1830 DC 06/08 IV 1831 Dextrose/Water 1,000 ML .[id number] 06/08 1715 DC 06/08 IV 06/09 0634 1730 Folic Acid 1 MG DAILY 06/08 0915 AC 06/09 PO 1031 Heparin Sodium 5,000 UNIT Q8 06/07 2200 AC 06/09 (Porcine) SC 0708 Insulin Human Regular 10 UNITS ONCE ONE 06/08 1415 DC 06/08 IV 06/08 1416 1425 Insulin Human Regular 0 .STK-MED ONE 06/08 1414 DC .ROUTE Lorazepam 1 MG ONCE ONE 06/09 0115 DC 06/09 IV 06/09 0116 0119 Lorazepam 0 .STK-MED ONE 06/09 0107 DC .ROUTE Multivitamins 1 TAB DAILY 06/08 0915 AC 06/09 PO 1031 Nicotine 21 MG DAILY 06/08 0900 AC TOP Olanzapine 5 MG ONCE ONE 06/09 0045 DC IM 06/09 0046 Phosphate 250 MG PC AND AT BEDTIME 06/08 2100 DC 06/09 PO 06/09 0901 0909 Sodium Polystyrene 60 ML ONCE ONE 06/08 1730 DC 06/08 Sulfonate PO 06/08 1731 1730 Sodium Polystyrene 0 .STK-MED ONE 06/08 1730 DC Sulfonate .ROUTE Thiamine HCl 100 MG TID 06/07 2241 AC 06/09 Sodium Chloride 50 ML IV 06/10 1459 0910 Results Pertinent Lab Results: Laboratory Tests 06/09 06/08 06/08 06/08 06/08 0415 2348 2000 1640 1223 Chemistry Sodium (137 - 145 mmol/L) 123 L 125 L 124 L 128 L 125 L Potassium (3.5 - 5.1 mmol/L) 4.1 4.4 4.8 5.3 H 5.8 H Chloride (98 - 107 mmol/L) 90 L 92 L 92 L 93 L 91 L Carbon Dioxide (22 - 30 mmol/L) 26 Anion Gap (5 - 16) 8 12 7 6 8 BUN (7 - 17 mg/dL) 11 12 14 11 10 Creatinine (0.5 - 1.0 mg/dL) 0.6 0.6 0.7 0.6 0.7 Estimated GFR (>60 ml/min) > 60 > 60 > 60 > 60 > 60 Glucose (65 - 99 mg/dL) 92 109 H 91 83 96 Calcium (8.4 - 10.2 mg/dL) 9.2 9.7 9.8 10.0 10.0 Phosphorus (2.5 - 4.5 mg/dL) 2.9 2.7 2.2 L 1.5 L 2.6 Magnesium (1.6 - 2.3 mg/dL) 1.9 2.0 2.4 H 2.5 H 2.5 H Total Bilirubin (0.2 - 1.3 mg/dL) 1.1 1.5 H 1.3 1.2 1.6 H AST (14 - 36 U/L) 39 H 45 H 43 H 44 H 51 H ALT (9 - 52 U/L) 39 40 38 38 41 Albumin (3.5 - 5.0 g/dL) 3.6 4.4 4.1 4.1 4.6 06/08 06/08 06/07 0645 0230 2300 Chemistry Sodium (137 - 145 mmol/L) 123 L 121 L 118 *L Potassium (3.5 - 5.1 mmol/L) 4.3 2.6 *L 2.3 *L Chloride (98 - 107 mmol/L) 82 L 74 L 71 L Carbon Dioxide (22 - 30 mmol/L) 34 H 38 H 37 H Anion Gap (5 - 16) 7 9 10 BUN (7 - 17 mg/dL) 8 8 7 Creatinine (0.5 - 1.0 mg/dL) 0.7 0.6 0.6 Estimated GFR (>60 ml/min) > 60 > 60 > 60 Glucose (65 - 99 mg/dL) 95 100 H 109 H Calcium (8.4 - 10.2 mg/dL) 9.9 9.5 9.6 Phosphorus (2.5 - 4.5 mg/dL) 3.3 3.7 3.6 Magnesium (1.6 - 2.3 mg/dL) 2.3 2.2 2.2 Total Bilirubin (0.2 - 1.3 mg/dL) 2.1 H 1.9 H 1.8 H Direct Bilirubin (< 0.4 mg/dL) 0.5 H AST (14 - 36 U/L) 50 H 46 H 42 H ALT (9 - 52 U/L) 39 38 39 Alkaline Phosphatase (<127 U/L) 82 Albumin (3.5 - 5.0 g/dL) 4.4 4.2 4.1 Triglycerides (<150 mg/dL) 61 Cholesterol (<200 MG/DL) 212 H LDL Cholesterol, Calc (65 - 129 mg/dL) 107 HDL Cholesterol (40 - 60 mg/dL) 93 H Cholesterol/HDL Ratio (0.00 - 4.23 %) 2 Free T4 (0.78 - 2.44 ng/dL) 1.46 Cortisol AM Sample (4.46 - 22.7 ug/dL) 21.9 Hematology CBC w Diff NO MAN DIFF REQ WBC (4.8 - 10.8 /CUMM) 3.6 L RBC (4.20 - 5.40 /CUMM) 4.75 Hgb (12.0 - 16.0 G/DL) 15.0 Hct (37 - 47 %) 42.8 MCV (81.0 - 99.0 FL) 90.2 MCH (27.0 - 31.0 PG) 31.6 H MCHC (33.0 - 37.0 G/DL) 35.0 RDW (11.5 - 14.5 %) 13.3 Plt Count (130 - 400 /CUMM) 178 MPV (7.4 - 10.4 FL) 7.9 Gran % (42.2 - 75.2 %) 58.3 Lymphocytes % (20.5 - 51.1 %) 23.1 Monocytes % (1.7 - 9.3 %) 16.3 H Eosinophils % (0 - 5 %) 1.7 Basophils % (0.0 - 2.0 %) 0.6 Absolute Granulocytes (1.4 - 6.5 /CUMM) 2.1 Absolute Lymphocytes (1.2 - 3.4 /CUMM) 0.8 L Absolute Monocytes (0.10 - 0.60 /CUMM) 0.6 Absolute Eosinophils (0.0 - 0.7 /CUMM) 0.1 Absolute Basophils (0.0 - 0.2 /CUMM) 0 Serology Hepatitis A IgM Ab (NONREACTIVE) NONREACTIVE Hep Bs Antigen (NONREACTIVE) NONREACTIVE Hep B Core IgM Ab Conf (NONREACTIVE) NONREACTIVE Hepatitis C Antibody (NONREACTIVE) NONREACTIVE 06/07 Chemistry Serum Osmolality Cancelled Uric Acid Cancelled Cortisol AM Sample Cancelled Hematology Haptoglobin Pending Toxicology Methadone Screen Cancelled Barbiturate Screen Cancelled Ur Phencyclidine Scrn Cancelled Amphetamines Screen Cancelled U Benzodiazepines Scrn Cancelled Urine Cocaine Screen Cancelled Urine Cannabis Screen Cancelled Urines Ur Random Creatinine Cancelled Ur Random Sodium Cancelled Ur Random Potassium Cancelled Fraction Sodium Excret Cancelled 06/07 Chemistry Sodium (137 - 145 mmol/L) 116 *L Potassium (3.5 - 5.1 mmol/L) 2.2 *L Chloride (98 - 107 mmol/L) 67 L Carbon Dioxide (22 - 30 mmol/L) 35 H Anion Gap (5 - 16) 14 BUN (7 - 17 mg/dL) 9 Creatinine (0.5 - 1.0 mg/dL) 0.7 Estimated GFR (>60 ml/min) > 60 BUN/Creatinine Ratio (7 - 25 %) 12.9 Glucose (65 - 99 mg/dL) 127 H Serum Osmolality (285 - 295 MOSM/KG) 240 L Uric Acid (2.5 - 6.2 mg/dL) 4.7 Calcium (8.4 - 10.2 mg/dL) 10.2 Magnesium (1.6 - 2.3 mg/dL) 1.8 Total Bilirubin (0.2 - 1.3 mg/dL) 1.9 H Direct Bilirubin (< 0.4 mg/dL) 0.6 H AST (14 - 36 U/L) 49 H ALT (9 - 52 U/L) 45 Alkaline Phosphatase (<127 U/L) 93 Lactate Dehydrogenase (313 - 618 U/L) 389 Troponin I (< 0.11 ng/ml) 0.02 Total Protein (6.3 - 8.2 g/dL) 8.1 Albumin (3.5 - 5.0 g/dL) 4.7 Globulin (1.9 - 4.2 gm/dL) 3.4 Albumin/Globulin Ratio (1.1 - 2.2 %) 1.4 TSH (0.270 - 4.200 uIU/mL) 2.340 Cortisol PM Sample (1.7 - 14.1) 16.4 H Hematology CBC w Diff NO MAN DIFF REQ WBC (4.8 - 10.8 /CUMM) 5.6 RBC (4.20 - 5.40 /CUMM) 5.06 Hgb (12.0 - 16.0 G/DL) 15.8 Hct (37 - 47 %) 45.9 MCV (81.0 - 99.0 FL) 90.7 MCH (27.0 - 31.0 PG) 31.2 H MCHC (33.0 - 37.0 G/DL) 34.4 RDW (11.5 - 14.5 %) 13.1 Plt Count (130 - 400 /CUMM) 191 MPV (7.4 - 10.4 FL) 7.6 Gran % (42.2 - 75.2 %) 70.3 Lymphocytes % (20.5 - 51.1 %) 15.3 L Monocytes % (1.7 - 9.3 %) 13.8 H Eosinophils % (0 - 5 %) 0.4 Basophils % (0.0 - 2.0 %) 0.2 Absolute Granulocytes (1.4 - 6.5 /CUMM) 3.9 Absolute Lymphocytes (1.2 - 3.4 /CUMM) 0.9 L Absolute Monocytes (0.10 - 0.60 /CUMM) 0.8 H Absolute Eosinophils (0.0 - 0.7 /CUMM) 0 Absolute Basophils (0.0 - 0.2 /CUMM) 0 Toxicology Urine Opiates Screen (>2000 NG/ML) < 100 Methadone Screen (>300 NG/ML) < 40 Barbiturate Screen (>200 NG/ML) < 60 Ur Phencyclidine Scrn (>25 NG/ML) < 6.00 Amphetamines Screen (>1000 NG/ML) < 100 U Benzodiazepines Scrn (>200 NG/ML) < 85 Urine Cocaine Screen (>300 NG/ML) < 50 Urine Cannabis Screen (>50 NG/ML) < 5.00 Serum Alcohol (<10 MG/DL) < 10.0 Urines Urinalysis LIGHT H Urine Color (YEL,AMB,STR) YEL Urine Clarity (CLEAR) CLEAR Urine pH (5.0 - 8.0) 7.0 Ur Specific Brumley (1.001 - 1.035) 1.020 Urine Protein (NEG,<30 MG/DL) NEG Urine Ketones (NEG) TRACE H Urine Nitrite (NEG) NEG Urine Bilirubin (NEG) NEG Urine Urobilinogen (0.1 - 1.0 EU/dl) 1.0 Ur Leukocyte Esterase (NEG) NEG Ur Microscopic SEDIMENT EXAMINED Urine RBC (0 - 5 /HPF) 1-3 Urine WBC (0 - 2 /HPF) 1-3 H Ur Epithelial Cells (NONE,FEW) RARE Urine Bacteria (NEG/NONE) FEW H Urine Hemoglobin (NEG) TRACE-INTACT Urine Osmolality (300 - 1000 MOSM/KG) 399 Ur Random Creatinine (mg/dL) 62.1 Ur Random Sodium (30 - 90 mmol/L) 71 Ur Random Potassium (mmol/L) 66.8 Fraction Sodium Excret (<1% %) 0.7 Urine Glucose (N MG/DL) NEG
--- NOTE | 2018-06-09 14:44 | Cons- Psychiatry ---
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 Patient's name is Bonita Giraldo her account number is [id number]. Date of 1955. HISTORY OF PRESENT ILLNESS Ms. Giraldo is a 62-year-old female with a past history of HTN, severe alcohol use disorder, tobacco use. There is no mention of a past psychiatric history aside from alcohol use disorder. Patient was brought to the hospital after abrupt cessation of extensive drinking for many years. She had stopped drinking for about 5 days. Her son reported that she started to hallucinate at home and was becoming increasingly confused. At that point she was unable to eat and started drinking copious amounts of water. Son stated that for at least 10 months she had been drinking a 6 or 12 pack of beer daily. She began to hallucinate and act strange at home. At the time of her ED admission she felt tremulous but denied any loss of consciousness or seizures; the son reported she awakened him 10:00 the night before reporting that the landlord was screaming-- this episode of altered mental status went on for at least 5 days before she was brought to the hospital by son. Hospital Course: Laboratory Tests 06/09/18 1145: Anion Gap 10, Estimated GFR > 60, Glucose 99, Calcium 9.4, Phosphorus 3.4, Magnesium 1.9, Total Bilirubin 1.4 H, AST 42 H, ALT 40, Albumin 4.1 06/09/18 0415: Anion Gap 8, Estimated GFR > 60, Glucose 92, Calcium 9.2, Phosphorus 2.9, Magnesium 1.9, Total Bilirubin 1.1, AST 39 H, ALT 39, Albumin 3.6 06/08/18 7928: Anion Gap 12, Estimated GFR > 60, Glucose 109 H, Calcium 9.7, Phosphorus 2.7, Magnesium 2.0, Total Bilirubin 1.5 H, AST 45 H, ALT 40, Albumin 4.4 06/08/18 2000: Anion Gap 7, Estimated GFR > 60, Glucose 91, Calcium 9.8, Phosphorus 2.2 L, Magnesium 2.4 H, Total Bilirubin 1.3, AST 43 H, ALT 38, Albumin 4.1 06/08/18 1640: Anion Gap 6, Estimated GFR > 60, Glucose 83, Calcium 10.0, Phosphorus 1.5 L, Magnesium 2.5 H, Total Bilirubin 1.2, AST 44 H, ALT 38, Albumin 4.1 Vital Signs Date Time Temp Pulse Resp B/P B/P Pulse O2 O2 Flow FiO2 Mean Ox Delivery Rate 06/09 1200 97.8 70 20 118/68 06/09 1200 97.8 70 20 118 99 Room Air 06/09 0909 86 120/74 06/09 0800 97.5 64 20 120/80 06/09 0800 97.5 64 20 120/80 100 Room Air 06/09 0600 56 20 100/60 06/09 0400 96.0 56 18 111/73 06/09 0400 99 Room Air 06/09 0200 96.9 92 18 128/76 06/09 0000 97.7 114 20 140/80 06/09 0000 99 Room Air 06/09 0000 97.7 114 20 140/80 99 Room Air 06/08 2200 97.3 62 21 133/75 06/08 2000 97.3 60 20 125/72 06/08 1600 97.5 62 18 122/70 97 Room Air Patient's vitals in the emergency room remained stable but she had severe electrolyte abnormalities her white blood count was 3.6 MCV 90.2 platelets 178 on 827 her sodium was 116 her potassium was 2.2 bicarb is 35 serum osmolality was 240 calcium 10.2 magnesium 1.8 her creatinine was 0.7 chloride was 67 H&H was 15/45 urinalysis showed trace ketones serum alcohol was negative chest x-ray was unremarkable CT of head was unremarkable her urine drug screen was unremarkable UA showed no sign of UTI. Her PE on the day of admit: general appearance alert and oriented 3 she was cooperative her skin showed no rashes HEENT was atraumatic PERRLA her neck was supple with no JVD cardiovascular regular rate and normal S1 normal S2 lungs are clear to auscultation with normal air movement abdomen was normal bowel sounds soft no tenderness neurological showed normal speech and normal strength at 5 out of 5 4 extremities normal tone and sensation was intact extremities there is no clubbing cyanosis or edema vascular showed normal pulses that were symmetrical. Patient was admitted to ICU for auditory hallucinations severe hypokalemia alcohol withdrawal and elevated bicarb. Her labs also showed mild transaminitis. Patient was seen by renal who noted that the patient had a hypotonic euvolemic hyponatremia; the patient became hyperkalemic at 5.8 with peak T waves after accidental overcorrection which was resolved without issue with calcium insulin and an amp of D50 she was asymptomatic; she did go for right upper quadrant ultrasound which showed hepatic steatosis and 2 cysts. Pt became behavioral--agitated and tachycardic she ripped off her monitor and attempted to leave without responding to nursing staff his instructions; security needed to be called in patient was placed in a [place] given a milligram of Ativan. She was stating irrationally that she needed to leave and get things done and will come back. She was given folate and thiamine given her history of alcoholism and remained on neuro checks. PMH consists of hypertension she had a large mole removed from her right hand 3 years ago for concern of malignancy she smokes and she has a long history of alcohol dependence. She has had an appendectomy in the past. FH Father had blood clots; GF uncle severe etohism. Allergies amoxicillin Medications amlodipine 10 mg daily hydrochlorothiazide 25 mg daily SH: Patient lives at home with her son she has no services at home there is no illicit drug use she is independent with dressing eating toileting and bathing she ambulates she needs assist with IADLs shopping housework finance food prep telephone transportation and medication administration. ROS: All systems were reviewed and are negative. PAST PSYCHIATRIC HISTORY Long-standing alcohol use disorder up to 12 beers daily. The patient otherwise denies any previous psychiatric problems or diagnoses, inpatient or outpatient mental health care, suicide attempts, use of psychotropic medications, or any self injurious behavior. She sis go to [place] for rehab once many years ago stayed sober 1 year. FAMILY PSYCHIATRIC HISTORY Alcoholism as above. The patient otherwise denies any family history of mental illness or treatment, psychiatric hospitalizations, suicide attempts, or substance problems. Current Scheduled Medications: Current Medications Sig/Melissa Start time Last Medication Dose Route Stop Time Status Admin Acetaminophen 650 MG Q6P PRN 06/07 2015 AC 06/08 PO 2349 Acetaminophen 1,000 MG Q6P PRN 06/07 2015 AC IV Amlodipine Besylate 10 MG DAILY 06/08 0900 AC 06/09 PO 0909 Calcium Gluconate 1 GM ONCE ONE 06/08 1415 DC 06/08 Sodium Chloride 100 ML IV 06/08 1514 1423 Dextrose/Water 1,000 ML Q6H 06/08 1830 DC 06/08 IV 1831 Dextrose/Water 1,000 ML .[id number] 06/08 1715 DC 06/08 IV 06/09 0634 1730 Folic Acid 1 MG DAILY 06/08 0915 AC 06/09 PO 1031 Heparin Sodium 5,000 UNIT Q8 06/07 2200 AC 06/09 (Porcine) SC 0708 Lorazepam 1 MG ONCE ONE 06/09 0115 DC 06/09 IV 06/09 0116 0119 Lorazepam 0 .STK-MED ONE 06/09 0107 DC .ROUTE Multivitamins 1 TAB DAILY 06/08 0915 AC 06/09 PO 1031 Nicotine 21 MG DAILY 06/08 0900 AC TOP Olanzapine 5 MG ONCE ONE 06/09 0045 DC IM 06/09 0046 Phosphate 250 MG PC AND AT BEDTIME 06/08 2100 DC 06/09 PO 06/09 0901 0909 Sodium Polystyrene 60 ML ONCE ONE 06/08 1730 DC 06/08 Sulfonate PO 06/08 1731 1730 Sodium Polystyrene 0 .STK-MED ONE 06/08 1730 DC Sulfonate .ROUTE Thiamine HCl 100 MG TID 06/07 2241 AC 06/09 Sodium Chloride 50 ML IV 06/10 1459 0910 RESULTS/DATA REVIEW Labs and imaging have been reviewed as above. EKG: QTc<450 MENTAL STATUS EXAMINATION Appearance: Scrubs, in chair, looks lucian. Attention: Days of week backward intact, follows conversation. Orientation: Year, Month, No day, Struggled with President "jennifer" Interview Behavior: Cooperative, engaged Attire: Scrubs Grooming: As expected Eye Contact: Fair Mood: Ok Affect: She wants a cigarette kind of feeling. Motor Activity: No tremors, muscle weakness, muscle rigidity/stiffness/abnormal tone, clonus, abnormal involuntary muscle movements or seizure activity were noted. Speech: Clear, normal rate volume Thought Process: Linear, normal associations. Suicidal Ideation: Not now or ever Homicidal Ideation:No Delusions: Paranoia someone trying to hurt her at night Hallucination: Auditory hallucinations she still hearing voices at time especially during hours Memory: Fair Insight/Judgment: After a long interview in going through her priorities in trajectory of her care she revealed that she stopped drinking abruptly because she has a grandchild on the way. Her drinking has been a problem for her son and daughter and she wants to be a part of her grandchildren's lives. The biggest thing she complained about is that she really really wants a cigarette. We discussed the priorities of her medical psychiatric and then daily life activities and while she understands intellectually at still hard for her to not want a cigarette she is still somewhat confused but I believe her insight improved somewhat during the interview. She is still mildly delirious so this will have to be reassessed. Judgment for now seems good she is willing to stay she agrees to a 14 mg patch and some trazodone to help her when she potentially becomes confused during hours or otherwise. 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 Delirium is driven by a direct physiologic consequence of a general medical condition, in this case abrupt cessation of etoh. 2. A low-dose antipsychotic can be used for agitation. Please check EKG and monitor QTc WHILE patient is receiving antipsychotic medications. Replete K and Mg as needed. Monitor for development of dystonia or extrapyramidal symptoms and give benadryl 25 mg if needed. 3. Continue to avoid benzodiazepines if you beleive she is completely out of WD given their potential to worsen delirium or precipitate disinhibited behavior. 4. Avoid anticholinergic drugs to the extent possible. Opiates can cause and worsen delirium, but untreated pain can as well. Seroquel also has anticholinergic properties. 5. Non-pharmacologic evidence based treatment includes repeated reorientation, promotion of good sleep hygiene, room with window, early mobilization, correction of dehydration, use of sensory aids (glasses, hearing aids), familiar faces (family, primary nurse) and the minimization of unnecessary noise and stimuli. Pt was bothered by lights and someone appearing in her door please continue to reorient her and answer her questions. I spent a significant period of time explaining her trajectory. 6. Due to patient having impaired capacity to make informed decision regarding certain aspects of medical care would recommend identifying surrogate decision maker. Son is involved and aware of patient's confused state but had low understanding that she she is not responsible for her actions at this time. Psychoed given. 7. Keep sitter she is still unpredicatable and waxing and waning. 8. Continue to address medical issues, including monitoring of appropriate lab values vital signs, as you are. 9> Patient does not have capacity to leave the hospital she is still delirious although I believe she is clearing she will need to be reassessed. She is not to leave the hospital. 10 . Her QTC is under 450 she can receive 25-50 of trazodone if she sundown's or otherwise would like to go to sleep so that she can stop thinking about needing a cigarette. 11. Should she becomes severely combative or tries to leave the hospital she can be posted in soft restraints. She can be medicated with 2 of IM Haldol if necessary with 2 of IM lorazepam if necessary as a last resort. Try to use the trazodone first and use redirection. 12. Please give her a 12 mg anabelle patch she is very edgy from not smoking and has finally agreed to patch. 13. She c/o of no psych symptoms but needs aftercare for etoh/sobriety. Thanks for consult. Humberto
[2018-06-10] VITALS (7 sets, daily range): BP systolic 110–132; BP diastolic 60–80
--- NOTE | 2018-06-10 07:27 | PN- Resident CRCU ---
See Addendum Subjective HPI/CRCU Issues: Hypotonic euvolemic hyponatremia 24 Hour Events: Psychiatry saw patient yesterday, and determined that she did not have capacity to leave AGAINST MEDICAL ADVICE. They recommended starting patient on trazodone 25 mg at night, and to avoid any anticholinergic or Ativan if possible. States that patient is delirious. Overnight she had 2 episodes of sinus bradycardia to the high 40s, likely due to her sleeping. She is vitally stable, has not been agitated, still has one-to-one sitter. She does refuse auto cuff, and so now is on blood pressures every 4 manually. Denies any current symptoms, states that she will try to use a nicotine patch today to stave off withdrawal. Objective Vital Signs & I&O Last 8 Hrs of Vitals and I&O: Intake & Output 06/10 0800 Intake Total 100 Output Total Balance 100 Intake, Oral 100 Exam General Appearance: well developed/nourished, no apparent distress, alert, awake , anxious Head: atraumatic Respiratory: lungs clear, decreased breath sounds Cardiovascular: regular rate/rhythm Gastrointestinal: soft, non-tender Extremities: normal inspection, no edema Skin: intact Skin Temp/Moisture Exam: Warm/Dry Sepsis Skin Exam (color): Normal for Ethnicity Current Medications: Current Medications Sig/Melissa Start time Last Medication Dose Route Stop Time Status Admin Acetaminophen 650 MG Q6P PRN 06/07 2015 AC 06/08 PO 2349 Acetaminophen 1,000 MG Q6P PRN 06/07 2015 AC IV Amlodipine Besylate 10 MG DAILY 06/08 09 AC 06/10 PO 0923 Folic Acid 1 MG DAILY 06/08 0915 AC 06/10 PO 0923 Heparin Sodium 5,000 UNIT Q8 06/07 2200 AC 06/10 (Porcine) SC 0602 Multivitamins 1 TAB DAILY 06/08 09 AC 06/10 PO 0923 Nicotine 21 MG DAILY 06/08 900 AC TOP Thiamine HCl 100 MG TID 06/07 2241 AC 06/10 Sodium Chloride 50 ML IV 06/10 1459 09 Trazodone HCl 25 MG AT BEDTIME 06/09 2100 AC 06/09 PO 2115 Impression/Plan Impression/Problem List Impression: 62 YO F with PMH significant for HTN on HCTZ, active smoking and alcohol consumption presented to [facility] with hearing voices. Recently self-detoxed at home 6 days ago after drinking 6-12 beers a day x 7-10 months, and drank copious amounts of water, roughly 10 small bottles a day whereas normally drinks 5. Is no longer complaining of hallucinations and denies any weakness, tremors, anxiety. In ICU due to Hypotonic euvolemic hyponatremia, frequent neuro checks given risk of CPM. She is stabilized, can likely be downgraded to general medicine. Respiratory: stable, current everyday smoker Sats at 99% on room air; rate of 18-24 nonlabored. Significant smoking history > 40 pack years, CXR negative for masses in ED. States "I need to go outside and smoke a cigarette". Has nicotine patch on her eMAR, has been refusing it but states today that she will try to use it. ID: stable Afebrile, hypothermic 96.6. Cardiovascular: stable Rate 48-84, SB + sinus rhhythm. 130-138/70-78 on amlodipine; HCTZ held; no appreciable murmurs, no edema or JVD noted Hematological: stable Metabolic: Hypotonic euvolemic hyponatremia (improving); Hypokalemia (resolved); Hyperkalemia (resolved), Metabolic Alkalosis (resolved), Elevated Liver Enzymes and bilirubin; Hx of Alcoholism -Sodium on presentation was 116. Currently 128; HCTZ is held and is being fluid restricted to 800. -Nephro consult is appreciated. Switched to labs daily in the morning. Correct no more than 8mEq/day; Currently 128; can go up to 136 today. -Thyroid tests WNL; AM cortisol normal. Serum OSM 240; Urine OSM 399, Ajit 79, FeNA <1. -Potassium has been corrected, initially was 2.2, after oral and IV repletion oscar to 5.8. EKG showed peaked T waves; was given calcium gluconate, insulin and one amp d50. Currently is 3.8. -Phosphorus and magnesium WNL. -Met alkalosis likely 2/2 HCTZ use and contraction alkalosis per discussion at rounds and with nephro, stable at this time. Will monitor with ICU bundle in am -AST at 46, TBili 1.2. RUQ U/S showed hepatic steatosis with 2 liver cysts. Hepatic panel negative. -Is on Folate and Thiamine given hx of alcoholism. -Social work appreciated. Alimentary: stable -Tolerating regular diet Neurological: had auditory hallucination upon admission; 1mg ativan overnight after attempt to leave AMA, off Sukumar but has one-to-one sitter -Psych consult appreciated. Patient does not have capacity to leave AGAINST MEDICAL ADVICE, currently delirious. Will frequently reorient to prevent sundowning, is on trazodone 25 mg at night. We will try to avoid Ativan or anticholinergics in necessary. If patient does get agitated, Haldol can be given. -Currently denies any tactile/auditory hallucinations -Neuro checks q1 -On CIWA, low scores -CT Head negative for any masses or trauma Nephro: stable DVT ppx: ALPS and Subq Heparin FULL CODE Problem List: 1. Hyponatremia 2. Acute delirium Pain Ratin Tomorrow's Labs & Rationales: BEP in the morning, monitor sodium Plan DVT/Prophylaxis: mechanical, pharmacological
--- NOTE | 2018-06-10 08:22 | PN- Nephrology ---
Assessment/Plan Nephrology Assessment: Hyponatremia from low solute, increased water intake and thiazide, improving at acceptable rate. Suggestion: Continue fluid restriction. At this point risk of too rapid correction minimal. Would discontinue the q 4 hour labs, just recheck in AM. Subjective Subjective: Awake, less agitated. Objective Vital Signs and I&Os Vital Signs Date Time Temp Pulse Resp B/P B/P Pulse O2 O2 Flow FiO2 Mean Ox Delivery Rate 06/10 0600 52 20 130/70 06/10 0400 96.6 52 20 130/70 06/10 0400 96 Room Air 06/10 0200 97.8 54 20 132/70 06/10 0000 97.8 54 17 132/70 06/10 0000 97.8 54 17 132/70 98 Room Air 06/09 2200 58 17 06/09 2000 Room Air 06/09 2000 84 18 136/74 06/09 1800 78 18 06/09 1600 Room Air 06/09 1600 97.2 92 19 138/78 06/09 1600 97.2 92 19 138/78 99 Room Air 06/09 1200 97.8 70 20 118/68 06/09 1200 97.8 70 20 118/68 99 Room Air 06/09 0909 86 120/74 Intake & Output 06/10 1600 06/10 0400 06/09 1600 06/09 0400 06/08 1600 06/08 0400 Intake Total 100 4901 450 1275 805 482 Output Total 450 867 540 6701 250 Balance 100 4451 350 675 -1595 232 Intake, IV 91 775 150 482 Intake, Oral 100 4810 450 500 655 Output, Urine 450 010 266 1609 250 Patient 145 lb 146 lb Weight Weight Bed scale Measurement Method Physical Exam: NAD VS as above Lung: clear CV: no rub Abd: nontender Exts: no edema Neuro : A&O. Current Medications: Current Medications Sig/Melissa Start time Last Medication Dose Route Stop Time Status Admin Acetaminophen 650 MG Q6P PRN 06/07 2015 AC 06/08 PO 2349 Acetaminophen 1,000 MG Q6P PRN 06/07 2015 AC IV Amlodipine Besylate 10 MG DAILY 06/08 09 AC 06/09 PO 0909 Folic Acid 1 MG DAILY 06/08 0915 AC 06/09 PO 1031 Heparin Sodium 5,000 UNIT Q8 06/070 AC 06/10 (Porcine) SC 0602 Multivitamins 1 TAB DAILY 06/08 0915 AC 06/09 PO 1031 Nicotine 21 MG DAILY 06/08 09 AC TOP Phosphate 250 MG PC AND AT BEDTIME 06/08 2100 DC 06/09 PO 06/09 0901 0909 Thiamine HCl 100 MG TID 06/07 2241 AC 06/09 Sodium Chloride 50 ML IV 06/10 1459 2115 Trazodone HCl 25 MG AT BEDTIME 06/09 2100 AC 06/09 PO 211 Results Pertinent Lab Results: Laboratory Tests 06/10 06/10 06/09 06/09 06/09 0400 0000 2120 1657 1145 Chemistry Sodium (137 - 145 mmol/L) 127 L 126 L 124 L 124 L 122 L Potassium (3.5 - 5.1 mmol/L) 4.0 3.4 L 3.7 3.8 3.9 Chloride (98 - 107 mmol/L) 94 L 94 L 92 L 89 L 89 L Carbon Dioxide (22 - 30 mmol/L) 24 25 25 24 23 Anion Gap (5 - 16) 9 8 7 10 10 BUN (7 - 17 mg/dL) 9 10 11 9 10 Creatinine (0.5 - 1.0 mg/dL) 0.5 0.5 0.6 0.6 0.5 Estimated GFR (>60 ml/min) > 60 > 60 > 60 > 60 > 60 Glucose (65 - 99 mg/dL) 82 82 90 101 H 99 Calcium (8.4 - 10.2 mg/dL) 9.5 8.8 9.1 9.4 9.4 Phosphorus (2.5 - 4.5 mg/dL) 3.8 3.5 3.6 3.5 3.4 Magnesium (1.6 - 2.3 mg/dL) 2.1 1.8 1.8 1.8 1.9 Total Bilirubin (0.2 - 1.3 mg/dL) 1.3 0.9 1.2 1.5 H 1.4 H AST (14 - 36 U/L) 50 H 36 42 H 43 H 42 H ALT (9 - 52 U/L) 35 42 37 42 40 Albumin (3.5 - 5.0 g/dL) 3.7 3.3 L 3.8 4.3 4.1 06/09 06/08 06/08 06/08 06/08 0415 2348 2000 1640 1223 Chemistry Sodium (137 - 145 mmol/L) 123 L 125 L 124 L 128 L 125 L Potassium (3.5 - 5.1 mmol/L) 4.1 4.4 4.8 5.3 H 5.8 H Chloride (98 - 107 mmol/L) 90 L 92 L 92 L 93 L 91 L Carbon Dioxide (22 - 30 mmol/L) 26 22 25 28 26 Anion Gap (5 - 16) 8 12 7 6 8 BUN (7 - 17 mg/dL) 11 12 14 11 10 Creatinine (0.5 - 1.0 mg/dL) 0.6 0.6 0.7 0.6 0.7 Estimated GFR (>60 ml/min) > 60 > 60 > 60 > 60 > 60 Glucose (65 - 99 mg/dL) 92 109 H 91 83 96 Calcium (8.4 - 10.2 mg/dL) 9.2 9.7 9.8 10.0 10.0 Phosphorus (2.5 - 4.5 mg/dL) 2.9 2.7 2.2 L 1.5 L 2.6 Magnesium (1.6 - 2.3 mg/dL) 1.9 2.0 2.4 H 2.5 H 2.5 H Total Bilirubin (0.2 - 1.3 mg/dL) 1.1 1.5 H 1.3 1.2 1.6 H AST (14 - 36 U/L) 39 H 45 H 43 H 44 H 51 H ALT (9 - 52 U/L) 39 40 38 38 41 Albumin (3.5 - 5.0 g/dL) 3.6 4.4 4.1 4.1 4.6 06/08 06/08 06/07 0645 0230 2300 Chemistry Sodium (137 - 145 mmol/L) 123 L 121 L 118 *L Potassium (3.5 - 5.1 mmol/L) 4.3 2.6 *L 2.3 *L Chloride (98 - 107 mmol/L) 82 L 74 L 71 L Carbon Dioxide (22 - 30 mmol/L) 34 H 38 H 37 H Anion Gap (5 - 16) 7 9 10 BUN (7 - 17 mg/dL) 8 8 7 Creatinine (0.5 - 1.0 mg/dL) 0.7 0.6 0.6 Estimated GFR (>60 ml/min) > 60 > 60 > 60 Glucose (65 - 99 mg/dL) 95 100 H 109 H Calcium (8.4 - 10.2 mg/dL) 9.9 9.5 9.6 Phosphorus (2.5 - 4.5 mg/dL) 3.3 3.7 3.6 Magnesium (1.6 - 2.3 mg/dL) 2.3 2.2 2.2 Total Bilirubin (0.2 - 1.3 mg/dL) 2.1 H 1.9 H 1.8 H Direct Bilirubin (< 0.4 mg/dL) 0.5 H AST (14 - 36 U/L) 50 H 46 H 42 H ALT (9 - 52 U/L) 39 38 39 Alkaline Phosphatase (<127 U/L) 82 Albumin (3.5 - 5.0 g/dL) 4.4 4.2 4.1 Triglycerides (<150 mg/dL) 61 Cholesterol (<200 MG/DL) 212 H LDL Cholesterol, Calc (65 - 129 mg/dL) 107 HDL Cholesterol (40 - 60 mg/dL) 93 H Cholesterol/HDL Ratio (0.00 - 4.23 %) 2 Free T4 (0.78 - 2.44 ng/dL) 1.46 Cortisol AM Sample (4.46 - 22.7 ug/dL) 21.9 Hematology CBC w Diff NO MAN DIFF REQ WBC (4.8 - 10.8 /CUMM) 3.6 L RBC (4.20 - 5.40 /CUMM) 4.75 Hgb (12.0 - 16.0 G/DL) 15.0 Hct (37 - 47 %) 42.8 MCV (81.0 - 99.0 FL) 90.2 MCH (27.0 - 31.0 PG) 31.6 H MCHC (33.0 - 37.0 G/DL) 35.0 RDW (11.5 - 14.5 %) 13.3 Plt Count (130 - 400 /CUMM) 178 MPV (7.4 - 10.4 FL) 7.9 Gran % (42.2 - 75.2 %) 58.3 Lymphocytes % (20.5 - 51.1 %) 23.1 Monocytes % (1.7 - 9.3 %) 16.3 H Eosinophils % (0 - 5 %) 1.7 Basophils % (0.0 - 2.0 %) 0.6 Absolute Granulocytes (1.4 - 6.5 /CUMM) 2.1 Absolute Lymphocytes (1.2 - 3.4 /CUMM) 0.8 L Absolute Monocytes (0.10 - 0.60 /CUMM) 0.6 Absolute Eosinophils (0.0 - 0.7 /CUMM) 0.1 Absolute Basophils (0.0 - 0.2 /CUMM) 0 Serology Hepatitis A IgM Ab (NONREACTIVE) NONREACTIVE Hep Bs Antigen (NONREACTIVE) NONREACTIVE Hep B Core IgM Ab Conf (NONREACTIVE) NONREACTIVE Hepatitis C Antibody (NONREACTIVE) NONREACTIVE 06/07 Chemistry Serum Osmolality Cancelled Uric Acid Cancelled Cortisol AM Sample Cancelled Hematology Haptoglobin (43 - 212 mg/dL) 121 Toxicology Methadone Screen Cancelled Barbiturate Screen Cancelled Ur Phencyclidine Scrn Cancelled Amphetamines Screen Cancelled U Benzodiazepines Scrn Cancelled Urine Cocaine Screen Cancelled Urine Cannabis Screen Cancelled Urines Ur Random Creatinine Cancelled Ur Random Sodium Cancelled Ur Random Potassium Cancelled Fraction Sodium Excret Cancelled 06/07 182 Chemistry Sodium (137 - 145 mmol/L) 116 *L Potassium (3.5 - 5.1 mmol/L) 2.2 *L Chloride (98 - 107 mmol/L) 67 L Carbon Dioxide (22 - 30 mmol/L) 35 H Anion Gap (5 - 16) 14 BUN (7 - 17 mg/dL) 9 Creatinine (0.5 - 1.0 mg/dL) 0.7 Estimated GFR (>60 ml/min) > 60 BUN/Creatinine Ratio (7 - 25 %) 12.9 Glucose (65 - 99 mg/dL) 127 H Serum Osmolality (285 - 295 MOSM/KG) 240 L Uric Acid (2.5 - 6.2 mg/dL) 4.7 Calcium (8.4 - 10.2 mg/dL) 10.2 Magnesium (1.6 - 2.3 mg/dL) 1.8 Total Bilirubin (0.2 - 1.3 mg/dL) 1.9 H Direct Bilirubin (< 0.4 mg/dL) 0.6 H AST (14 - 36 U/L) 49 H ALT (9 - 52 U/L) 45 Alkaline Phosphatase (<127 U/L) 93 Lactate Dehydrogenase (313 - 618 U/L) 389 Troponin I (< 0.11 ng/ml) 0.02 Total Protein (6.3 - 8.2 g/dL) 8.1 Albumin (3.5 - 5.0 g/dL) 4.7 Globulin (1.9 - 4.2 gm/dL) 3.4 Albumin/Globulin Ratio (1.1 - 2.2 %) 1.4 TSH (0.270 - 4.200 uIU/mL) 2.340 Cortisol PM Sample (1.7 - 14.1) 16.4 H Hematology CBC w Diff NO MAN DIFF REQ WBC (4.8 - 10.8 /CUMM) 5.6 RBC (4.20 - 5.40 /CUMM) 5.06 Hgb (12.0 - 16.0 G/DL) 15.8 Hct (37 - 47 %) 45.9 MCV (81.0 - 99.0 FL) 90.7 MCH (27.0 - 31.0 PG) 31.2 H MCHC (33.0 - 37.0 G/DL) 34.4 RDW (11.5 - 14.5 %) 13.1 Plt Count (130 - 400 /CUMM) 191 MPV (7.4 - 10.4 FL) 7.6 Gran % (42.2 - 75.2 %) 70.3 Lymphocytes % (20.5 - 51.1 %) 15.3 L Monocytes % (1.7 - 9.3 %) 13.8 H Eosinophils % (0 - 5 %) 0.4 Basophils % (0.0 - 2.0 %) 0.2 Absolute Granulocytes (1.4 - 6.5 /CUMM) 3.9 Absolute Lymphocytes (1.2 - 3.4 /CUMM) 0.9 L Absolute Monocytes (0.10 - 0.60 /CUMM) 0.8 H Absolute Eosinophils (0.0 - 0.7 /CUMM) 0 Absolute Basophils (0.0 - 0.2 /CUMM) 0 Toxicology Urine Opiates Screen (>2000 NG/ML) < 100 Methadone Screen (>300 NG/ML) < 40 Barbiturate Screen (>200 NG/ML) < 60 Ur Phencyclidine Scrn (>25 NG/ML) < 6.00 Amphetamines Screen (>1000 NG/ML) < 100 U Benzodiazepines Scrn (>200 NG/ML) < 85 Urine Cocaine Screen (>300 NG/ML) < 50 Urine Cannabis Screen (>50 NG/ML) < 5.00 Serum Alcohol (<10 MG/DL) < 10.0 Urines Urinalysis LIGHT H Urine Color (YEL,AMB,STR) YEL Urine Clarity (CLEAR) CLEAR Urine pH (5.0 - 8.0) 7.0 Ur Specific [place] (1.001 - 1.035) 1.020 Urine Protein (NEG,<30 MG/DL) NEG Urine Ketones (NEG) TRACE H Urine Nitrite (NEG) NEG Urine Bilirubin (NEG) NEG Urine Urobilinogen (0.1 - 1.0 EU/dl) 1.0 Ur Leukocyte Esterase (NEG) NEG Ur Microscopic SEDIMENT EXAMINED Urine RBC (0 - 5 /HPF) 1-3 Urine WBC (0 - 2 /HPF) 1-3 H Ur Epithelial Cells (NONE,FEW) RARE Urine Bacteria (NEG/NONE) FEW H Urine Hemoglobin (NEG) TRACE-INTACT Urine Osmolality (300 - 1000 MOSM/KG) 399 Ur Random Creatinine (mg/dL) 62.1 Ur Random Sodium (30 - 90 mmol/L) 71 Ur Random Potassium (mmol/L) 66.8 Fraction Sodium Excret (<1% %) 0.7 Urine Glucose (N MG/DL) NEG
[2018-06-11] VITALS: BP 120/70
--- NOTE | 2018-06-11 08:01 | PN- Resident CRCU ---
See Addendum Subjective HPI/CRCU Issues: Hypotonic euvolemic hyponatremia 24 Hour Events: No acute events overnight. Patient states that she has not taken her nicotine patch at all, states that perhaps she might even quit tobacco on this admission. Patient denies any hallucinations both tactile or auditory. Patient states that she feels much better, denies any weakness or any complaints at this time. Vitally stable overnight. Denies fevers/chills/night sweats/chest pain/abdominal pain/urinary symptoms/lower extremity edema Objective Vital Signs & I&O Last 8 Hrs of Vitals and I&O: Vitally stable overnight, afebrile Exam General Appearance: no apparent distress, alert, comfortable Head: atraumatic Ears, Nose, Throat: normal pharynx Respiratory: lungs clear, decreased breath sounds Cardiovascular: regular rate/rhythm, normal peripheral pulses Gastrointestinal: soft, non-tender Extremities: normal inspection, no edema Cranial Nerves: normal hearing, normal speech Skin: intact Skin Temp/Moisture Exam: Warm/Dry Sepsis Skin Exam (color): Normal for Ethnicity Current Medications: Current Medications Sig/Melissa Start time Last Medication Dose Route Stop Time Status Admin Acetaminophen 650 MG Q6P PRN 06/07 2015 AC 06/08 PO 234 Acetaminophen 1,000 MG Q6P PRN 06/07 2015 AC IV Amlodipine Besylate 10 MG DAILY 06/08 09 AC 06/10 PO 0923 Folic Acid 1 MG DAILY 06/08 0915 AC 06/10 PO 0923 Heparin Sodium 5,000 UNIT Q8 06/07 2200 AC 06/11 (Porcine) SC 0657 Multivitamins 1 TAB DAILY 06/08 0915 AC 06/10 PO 0923 Nicotine 21 MG DAILY 06/08 0900 AC TOP Potassium Chloride 10 MEQ Q1H 06/11 0630 DC IV 06/11 0731 Thiamine HCl 100 MG TID 06/07 2241 DC 06/10 Sodium Chloride 50 ML IV 06/10 1459 1449 Trazodone HCl 25 MG AT BEDTIME 06/09 2100 AC 06/10 PO 2050 Impression/Plan Impression/Problem List Impression: 62 YO F with PMH significant for HTN on HCTZ, active smoking and alcohol consumption presented to [facility] with hearing voices. Recently self-detoxed at home 6 days ago after drinking 6-12 beers a day x 7-10 months, and drank copious amounts of water, roughly 10 small bottles a day whereas normally drinks 5. Is no longer complaining of hallucinations and denies any weakness, tremors, anxiety. In ICU due to Hypotonic euvolemic hyponatremia, frequent neuro checks given risk of CPM. She is stabilized, will head to General Medicine today. Low risk of CPM per nephro at this time. Respiratory: stable, current everyday smoker Sats at 97% on room air; rate of 18-24 nonlabored. Significant smoking history > 40 pack years, CXR negative for masses in ED. States "I need to go outside and smoke a cigarette". Has nicotine patch on her eMAR, has been refusing it. Currently states that she does not have any cravings, hopeful that this admission she will quit her tobacco habit. ID: stable Afebrile, temperature 98.1 Cardiovascular: stable Rate 68-70, SB + sinus rhhythm. 110-120/60-70 on amlodipine; HCTZ held; no appreciable murmurs, no edema or JVD noted Hematological: stable Metabolic: Hypotonic euvolemic hyponatremia (improving); Hypokalemia (resolved); Hyperkalemia (resolved), Metabolic Alkalosis (resolved), Elevated Liver Enzymes and bilirubin; Hx of Alcoholism -Sodium on presentation was 116. Currently 132; HCTZ is held and is being fluid restricted to 800. -Nephro consult is appreciated. Switched to labs daily in the morning. Correct no more than 8mEq/day; Currently 132; can go up to 140 today. -Thyroid tests WNL; AM cortisol normal. Serum OSM 240; Urine OSM 399, Ajit 79, FeNA <1. -Potassium has been corrected, initially was 2.2, after oral and IV repletion oscar to 5.8. EKG showed peaked T waves; was given calcium gluconate, insulin and one amp d50. Currently WNL. -Phosphorus and magnesium WNL. -Met alkalosis likely 2/2 HCTZ use and contraction alkalosis per discussion at rounds and with nephro, stable at this time. Will monitor with ICU bundle in am -AST at 46, TBili 1.2. RUQ U/S showed hepatic steatosis with 2 liver cysts. Hepatic panel negative. -Is on Folate and Thiamine given hx of alcoholism. -Social work appreciated. Alimentary: stable -Tolerating regular diet Neurological: had auditory hallucination upon admission; one-one sitter but no aggression overnight. Affect improved this morning. -Psych consult appreciated. Patient does not have capacity to leave AGAINST MEDICAL ADVICE. Will frequently reorient to prevent sundowning, is on trazodone 25 mg at night. We will try to avoid Ativan or anticholinergics in necessary. If patient does get agitated, Haldol 2mg IM can be given. -Currently denies any tactile/auditory hallucinations -Neuro checks q1 -On CIWA, low scores -CT Head negative for any masses or trauma Nephro: stable DVT ppx: ALPS and Subq Heparin FULL CODE Problem List: 1. Hypokalemia Pain Ratin Tomorrow's Labs & Rationales: BEP - monitor sodium Plan DVT/Prophylaxis: mechanical, pharmacological
--- NOTE | 2018-06-11 08:33 | Transfer of Care Summary ---
Hospital Course Course Hospital Course: Patient is a 62 YO F with PMH significant for HTN, active smoking and alcohol consumption presented to [facility] with hearing voices. Patient had long standing history of alcohol consumption, ON and OFF multiple times. She started drinking this time for the past 7-10months per son, she stopped all of a suddden 5 days ago. She was unable to eat well and started drinking lot of water since then. She usually drinks 6-12pack beers each day. She only sustained tremulousness after her abstinence, denies any loss of consiousness, seizures, headache, feeling heart rate, sweating. Per son yesterday night she woke him around 10pm saying that she hears landlord screaming out. He brought her out saying no one is there. According to him this is going on for the past 5 days on and off, never had similar episodes in the past. She was sent to the unit for severe hyponatremia and q1 neurochecks given risk of CPM. Her hydrochlorothiazide was held, and she was fluid restricted to 800 mL's a day. She was aggressively repleted potassium, and wound up having a potassium level of 5.8 on June 08, with peaked T waves. She was given calcium , insulin and dextrose, and she remained asymptomatic, EKG normalized. Nephro was consulted, and recommended to give 1 mcg DDAVP subcutaneously and start her on D5W if her sodium oscar above 125 mEq, given the aggressive potassium correction. Her sodium oscar to 126, and so she was started on D5W. She was on q4 sodium checks, and her sodium oscar appropriately no more than 8 mEq a day. Overnight on hospital day 1, she attempted to leave AMA, did not respond to nursing requests to stay in her bed, walked out towards telemetry getting as far as elevators, security was called and she was escorted back into her bed, putting Clay, and given 1 mg Ativan. Psych was consulted to see her the next day, and they determined she had no capacity to leave AMA, recommended starting trazodone 25 mg at night and avoiding anticholinergics or use of Ativan. She was on a one-to-one sitter, but did not have any further episodes of aggression. She remained vitally stable, and her sodium continued to rise appropriately. Nephro stated that she was no longer at high risk of CPM, recommended changing sodium checks to daily in the morning. She was stabilized, and was transferred to general medicine. Significant Procedures: Chest x-ray unremarkable, CT head negative Pertinent Lab Results: On initial presentation June 07, 2018, her potassium was 2.2, her sodium was 116. Her bicarbonate was 35. Serum osm - 240, urine osm - 399, Urine Na 79. 5.8 K on 06/08. Assessment/Plan: 62 YO F with PMH significant for HTN on HCTZ, active smoking and alcohol consumption presented to [facility] with hearing voices. Recently self-detoxed at home 6 days ago after drinking 6-12 beers a day x 7-10 months, and drank copious amounts of water, roughly 10 small bottles a day whereas normally drinks 5. Is no longer complaining of hallucinations and denies any weakness, tremors, anxiety. In ICU due to Hypotonic euvolemic hyponatremia, frequent neuro checks given risk of CPM. She is stabilized, will head to General Medicine today. Low risk of CPM per nephro at this time. Respiratory: stable, current everyday smoker Sats at 97% on room air; rate of 18-24 nonlabored. Significant smoking history > 40 pack years, CXR negative for masses in ED. States "I need to go outside and smoke a cigarette". Has nicotine patch on her eMAR, has been refusing it. Currently states that she does not have any cravings, hopeful that this admission she will quit her tobacco habit. ID: stable Afebrile, temperature 98.1 Cardiovascular: stable Rate 68-70, SB + sinus rhhythm. 110-120/60-70 on amlodipine; HCTZ held; no appreciable murmurs, no edema or JVD noted Hematological: stable Metabolic: Hypotonic euvolemic hyponatremia (improving); Hypokalemia (resolved); Hyperkalemia (resolved), Metabolic Alkalosis (resolved), Elevated Liver Enzymes and bilirubin; Hx of Alcoholism -Sodium on presentation was 116. Currently 132; HCTZ is held and is being fluid restricted to 800. -Nephro consult is appreciated. Switched to labs daily in the morning. Correct no more than 8mEq/day; Currently 132; can go up to 140 today. -Thyroid tests WNL; AM cortisol normal. Serum OSM 240; Urine OSM 399, Ajit 79, FeNA <1. -Potassium has been corrected, initially was 2.2, after oral and IV repletion oscar to 5.8. EKG showed peaked T waves; was given calcium gluconate, insulin and one amp d50. Currently WNL. -Phosphorus and magnesium WNL. -Met alkalosis likely 2/2 HCTZ use and contraction alkalosis per discussion at rounds and with nephro, stable at this time. Will monitor with ICU bundle in am -AST at 46, TBili 1.2. RUQ U/S showed hepatic steatosis with 2 liver cysts. Hepatic panel negative. -Is on Folate and Thiamine given hx of alcoholism. -Social work appreciated. Alimentary: stable -Tolerating regular diet Neurological: had auditory hallucination upon admission; one-one sitter but no aggression overnight. Affect improved this morning. -Psych consult appreciated. Patient does not have capacity to leave AGAINST MEDICAL ADVICE. Will frequently reorient to prevent sundowning, is on trazodone 25 mg at night. We will try to avoid Ativan or anticholinergics in necessary. If patient does get agitated, Haldol 2mg IM can be given. -Currently denies any tactile/auditory hallucinations -Neuro checks q1 -On CIWA, low scores -CT Head negative for any masses or trauma Nephro: stable DVT ppx: ALPS and Subq Heparin FULL CODE
[2018-06-11 08:48] VITALS: BP 130/78
--- NOTE | 2018-06-11 10:33 | PN- Nephrology ---
Assessment/Plan Nephrology Assessment: Hyponatremia due to low solute intake, increased water intake, thiazide diuretic. Suggestion: Out of danger zone at this point. Keep on fluid restriction for now, off thiazides permanently. Will see prn. Subjective Subjective: Patient feeling well, no new complaints. Objective Vital Signs and I&Os Vital Signs Date Time Temp Pulse Resp B/P B/P Pulse O2 O2 Flow FiO2 Mean Ox Delivery Rate 06/11 0848 97.9 80 20 130/78 97 Room Air 06/11 0826 68 126/70 06/11 0000 98.1 68 20 120/70 06/11 0000 98.1 68 20 120/70 97 Room Air 06/11 0000 97 Room Air 06/10 1600 97.8 70 18 110/60 06/10 1600 96 Room Air Room Air 06/10 1600 97.8 70 18 110/60 96 Room Air Room Air 06/10 1200 99.2 90 30 120/60 Intake & Output 06/11 1600 06/11 0400 06/10 1600 06/10 0400 06/09 1600 06/09 0400 Intake Total 777 049 2914 450 1275 Output Total 450 100 600 Balance 718 010 0536 350 675 Intake, IV 160 91 775 Intake, Oral 389 271 7115 450 500 Output, Urine 450 100 600 Patient 145 lb Weight Physical Exam: NAD VS as above Lung: clear CV: no rub Abd: nontender Exts: no edema Neuro : A&O. Current Medications: Current Medications Sig/Melissa Start time Last Medication Dose Route Stop Time Status Admin Acetaminophen 650 MG Q6P PRN 06/07 2015 AC 06/08 PO 2349 Acetaminophen 1,000 MG Q6P PRN 06/07 2015 AC IV Amlodipine Besylate 10 MG DAILY 06/08 900 AC 06/11 PO 825 Folic Acid 1 MG DAILY 06/08 915 AC 06/11 PO 825 Heparin Sodium 5,000 UNIT Q8 06/07 2200 AC 06/11 (Porcine) SC 0657 Multivitamins 1 TAB DAILY 06/08 915 AC 06/11 PO 825 Nicotine 21 MG DAILY 06/08 900 AC TOP Potassium Chloride 10 MEQ Q1H 06/11 06 DC IV 06/11 07 Thiamine HCl 100 MG TID 06/07 2241 DC 06/10 Sodium Chloride 50 ML IV 06/10 1459 1449 Trazodone HCl 25 MG AT BEDTIME 06/09 2100 AC 06/10 PO 2050 Results Pertinent Lab Results: Laboratory Tests 06/11 06/10 06/10 06/10 06/10 0430 1200 0831 0400 0000 Chemistry Sodium (137 - 145 mmol/L) 132 L Cancelled 128 L 127 L 126 L Potassium (3.5 - 5.1 mmol/L) 3.7 Cancelled 3.8 4.0 3.4 L Chloride (98 - 107 mmol/L) 99 Cancelled 95 L 94 L 94 L Carbon Dioxide (22 - 30 mmol/L) 27 Cancelled 25 24 25 Anion Gap (5 - 16) 6 Cancelled 9 9 8 BUN (7 - 17 mg/dL) 12 Cancelled 9 9 10 Creatinine (0.5 - 1.0 mg/dL) 0.6 Cancelled 0.5 0.5 0.5 Estimated GFR (>60 ml/min) > 60 > 60 > 60 > 60 Glucose (65 - 99 mg/dL) 102 H Cancelled 96 82 82 Calcium (8.4 - 10.2 mg/dL) 9.7 Cancelled 9.3 9.5 8.8 Phosphorus (2.5 - 4.5 mg/dL) 3.9 Cancelled 3.8 3.8 3.5 Magnesium (1.6 - 2.3 mg/dL) 2.3 Cancelled 2.1 2.1 1.8 Total Bilirubin (0.2 - 1.3 mg/dL) 0.6 Cancelled 1.2 1.3 0.9 AST (14 - 36 U/L) 32 Cancelled 46 H 50 H 36 ALT (9 - 52 U/L) 36 Cancelled 43 35 42 Albumin (3.5 - 5.0 g/dL) 3.7 Cancelled 3.6 3.7 3.3 L 06/09 06/09 06/09 06/09 06/08 2120 1657 1145 0415 2348 Chemistry Sodium (137 - 145 mmol/L) 124 L 124 L 122 L 123 L 125 L Potassium (3.5 - 5.1 mmol/L) 3.7 3.8 3.9 4.1 4.4 Chloride (98 - 107 mmol/L) 92 L 89 L 89 L 90 L 92 L Carbon Dioxide (22 - 30 mmol/L) 25 24 23 26 22 Anion Gap (5 - 16) 7 10 10 8 12 BUN (7 - 17 mg/dL) 11 9 10 11 12 Creatinine (0.5 - 1.0 mg/dL) 0.6 0.6 0.5 0.6 0.6 Estimated GFR (>60 ml/min) > 60 > 60 > 60 > 60 > 60 Glucose (65 - 99 mg/dL) 90 101 H 99 92 109 H Calcium (8.4 - 10.2 mg/dL) 9.1 9.4 9.4 9.2 9.7 Phosphorus (2.5 - 4.5 mg/dL) 3.6 3.5 3.4 2.9 2.7 Magnesium (1.6 - 2.3 mg/dL) 1.8 1.8 1.9 1.9 2.0 Total Bilirubin (0.2 - 1.3 mg/dL) 1.2 1.5 H 1.4 H 1.1 1.5 H AST (14 - 36 U/L) 42 H 43 H 42 H 39 H 45 H ALT (9 - 52 U/L) 37 42 40 39 40 Albumin (3.5 - 5.0 g/dL) 3.8 4.3 4.1 3.6 4.4 06/08 06/08 06/08 2000 1640 1223 Chemistry Sodium (137 - 145 mmol/L) 124 L 128 L 125 L Potassium (3.5 - 5.1 mmol/L) 4.8 5.3 H 5.8 H Chloride (98 - 107 mmol/L) 92 L 93 L 91 L Carbon Dioxide (22 - 30 mmol/L) 25 28 26 Anion Gap (5 - 16) 7 6 8 BUN (7 - 17 mg/dL) 14 11 10 Creatinine (0.5 - 1.0 mg/dL) 0.7 0.6 0.7 Estimated GFR (>60 ml/min) > 60 > 60 > 60 Glucose (65 - 99 mg/dL) 91 83 96 Calcium (8.4 - 10.2 mg/dL) 9.8 10.0 10.0 Phosphorus (2.5 - 4.5 mg/dL) 2.2 L 1.5 L 2.6 Magnesium (1.6 - 2.3 mg/dL) 2.4 H 2.5 H 2.5 H Total Bilirubin (0.2 - 1.3 mg/dL) 1.3 1.2 1.6 H AST (14 - 36 U/L) 43 H 44 H 51 H ALT (9 - 52 U/L) 38 38 41 Albumin (3.5 - 5.0 g/dL) 4.1 4.1 4.6
[2018-06-11 14:23] VITALS: BP 122/72
[2018-06-11 21:21] VITALS: BP 110/60
[2018-06-12] VITALS (8 sets, daily range): BP systolic 119–141; BP diastolic 56–76
--- NOTE | 2018-06-12 08:39 | PN- Housestaff ---
Andrea Evans 06/12/18 0839: Subjective Subjective: Patient seen and examiend at bedside this morning. She is alert and oriented X 3 with sitter at bedside. She denies any delusions/hallucunations at this point. Patient on fluid restriction. Denies any dizziness, light headedness, fevers, chills, nausea vomiting over night. Awaiting psychiatry recommendations. Review of Systems Constitutional: Denies: see HPI. Objective Last 24 Hrs of Vital Signs/I&O Vital Signs Date Time Temp Pulse Resp B/P B/P Pulse O2 O2 Flow FiO2 Mean Ox Delivery Rate 06/12 0847 62 141/76 06/12 0701 98.1 62 19 141/76 99 06/11 2121 97.9 68 17 110/60 96 Room Air 06/11 1423 97.8 78 18 122/72 97 Room Air Intake & Output 06/12 1600 06/12 0800 06/12 0000 Intake Total 100 Output Total Balance 100 Intake, Oral 100 Physical Exam General Appearance: Alert, Oriented X3, Cooperative, No Acute Distress Skin: No Rashes, No Breakdown Cardiovascular: Regular Rate, Normal S1, Normal S2 Lungs: Clear to Auscultation, Normal Air Movement Abdomen: Normal Bowel Sounds, Soft, No Tenderness Vascular: Normal Pulses, Pulses Symmetrical Current Medications: Current Medications Sig/Melissa Start time Last Medication Dose Route Stop Time Status Admin Acetaminophen 650 MG Q6P PRN 06/07 2015 AC 06/08 PO 2349 Acetaminophen 1,000 MG Q6P PRN 06/07 2015 AC IV Amlodipine Besylate 10 MG DAILY 06/08 900 AC 06/12 PO 0847 Folic Acid 1 MG DAILY 06/08 915 AC 06/12 PO 0848 Heparin Sodium 5,000 UNIT Q8 06/07 2200 AC 06/12 (Porcine) SC 0526 Multivitamins 1 TAB DAILY 06/08 915 AC 06/12 PO 0847 Nicotine 21 MG DAILY 06/08 09 AC 06/12 TOP 0847 Trazodone HCl 25 MG AT BEDTIME 06/09 2100 AC 06/11 PO 2044 Last 24 Hrs of Lab/Dav Results Last 24 Hrs of Labs/Mics: Laboratory Tests 06/12/18 0620: Anion Gap 7, Estimated GFR > 60, BUN/Creatinine Ratio 23.3 Assessment/Plan Assessment: 62 YO F with PMH significant for HTN on HCTZ, active smoking and alcohol consumption presented to [facility] with hearing voices. Recently self-detoxed at home 6 days ago after drinking 6-12 beers a day x 7-10 months, and drank copious amounts of water, roughly 10 small bottles a day whereas normally drinks 5. Is no longer complaining of hallucinations and denies any weakness, tremors, anxiety. Patient transfered from ICU to general medicine. In ICU due to Hypotonic euvolemic hyponatremia, frequent neuro checks given risk of CPM. Low risk of CPM per nephro at this time. 06/12: Patient has safety monitor in place. CANNOT leave AMA does not have the capacity. Monitoring CIWA scores. Monitoring for hallucinations/psychiatric symptoms. Sodium stable at 134 this morning. PROBLEM LIST: 1. Hypotonic Euvolemic Hyponatremia (improving) 2. Elevated liver enzymes 3. Alcohol abuse 4. Hallucinations on admission - CANNOT leave against medical advice HYPONATREMIA Sodium on presentation 116. HCTZ held and fluid restricted of 800. Nephrology on board. Correct no more than 8mEq/day. Hyponatremia is due to low solute intake, increased water intake, thiazide diuretic * NA: 134 today * Nephrology on board - out of danger zone at this point; keep on fluid restriction for now * OFF Thiazides permanently ALCOHOL ABUSE * Continue CIWA scores; currently low * folic acid, multivitamin HALLUCINATIONS No hallucinations or delusions at this time - patient AAOX3. * Psychiatry on board; keep sitter for now * patient does NOT have capacity to leave AMA * Reorient to prevent sundowning; trazadone 25mg/night * Haldol 2mg IM can be given if patient becomes agitated * CT Head negative for any masses or trauma ELEVATED LIVER ENZYMES AST at 32 now and ALT at 36. RUQ U/S showed hepatic steatosis with 2 liver cysts. Hepatic panel negative. Code Status: Full Code DVT PPx: Alps Heparin SC Problem List: 1. Acute delirium Pain Ratin Pain Location: denies pain at this time Pain Goal: Pain 4 or less Pain Plan: as per pain pathway Tomorrow's Labs & Rationales: Jose Jones MD 06/12/18 1303: Subjective Follow-up For: Hyponatriemia Review of Systems Constitutional: Reports: see HPI. Objective Last 24 Hrs of Vital Signs/I&O Vital Signs Date Time Temp Pulse Resp B/P B/P Pulse O2 O2 Flow FiO2 Mean Ox Delivery Rate 06/12 1200 97.8 60 18 138/74 09/ 1000 98.1 62 19 141/76 09 0847 62 141/76 06/12 0800 98.1 62 19 141/76 09 0701 98.1 62 19 141/76 99 06/11 2121 97.9 68 17 110/60 96 Room Air 06/11 1423 97.8 78 18 122/72 97 Room Air Intake & Output 06/12 1600 06/12 0800 06/12 0000 Intake Total 100 Output Total Balance 100 Intake, Oral 100 Physical Exam General Appearance: Alert, Oriented X3, Cooperative, No Acute Distress Skin: No Rashes, No Breakdown HEENT: Atraumatic, PERRLA, EOMI Cardiovascular: Regular Rate, Normal S1, Normal S2 Lungs: Clear to Auscultation, Normal Air Movement Abdomen: Normal Bowel Sounds, Soft, No Tenderness Current Medications: Current Medications Sig/Melissa Start time Last Medication Dose Route Stop Time Status Admin Acetaminophen 650 MG Q6P PRN 06/07 2015 AC 06/08 PO 2349 Acetaminophen 1,000 MG Q6P PRN 06/07 2015 AC IV Amlodipine Besylate 10 MG DAILY 06/08 09 AC 06/12 PO 0847 Folic Acid 1 MG DAILY 06/08 0915 AC 06/12 PO 0848 Heparin Sodium 5,000 UNIT Q8 06/07 2200 AC 06/12 (Porcine) SC 0526 Multivitamins 1 TAB DAILY 06/08 0915 AC 06/12 PO 0847 Nicotine 21 MG DAILY 06/08 09 AC 06/12 TOP 0847 Trazodone HCl 25 MG AT BEDTIME 06/09 2100 AC 06/11 PO 2044 Last 24 Hrs of Lab/Dav Results Last 24 Hrs of Labs/Mics: Laboratory Tests 06/12/18 0620: Anion Gap 7, Estimated GFR > 60, BUN/Creatinine Ratio 23.3 Attending MD Review Statement Attending Statement Attending MD Statement: examined this patient, agreed w/resident/PA/ENGINE MANAGER, reviewed EMR data (avail) Attending Assessment/Plan: This patient is a 62 year old wf with hyponatriemia and alcohol detox. Contine to improve with limited haluciantions. Plans for psychiatry evalution and outpatient IOP. If without haluciantion may be able to remove sitter.
[2018-06-13] VITALS (9 sets, daily range): BP systolic 117–137; BP diastolic 60–100
--- NOTE | 2018-06-13 08:47 | PN- Housestaff ---
Andrea Evans 06/13/18 0846: Subjective Follow-up For: Hyponatremia Hallucinations - resolved Subjective: Patient seen and examiend at bedside this morning. She is alert and oriented X 3 with sitter at bedside. She denies any delusions/hallucunations at this point. Patient on fluid restriction. Denies any dizziness, light headedness, fevers, chills, nausea vomiting over night. Awaiting psychiatry recommendations. Review of Systems Constitutional: Denies: see HPI. Objective Last 24 Hrs of Vital Signs/I&O Vital Signs Date Time Temp Pulse Resp B/P B/P Pulse O2 O2 Flow FiO2 Mean Ox Delivery Rate 06/13 0742 54 117/66 09 0511 97.9 54 117/66 97 Room Air 06/12 2112 98.3 54 18 124/56 99 Room Air 06/12 1600 97.6 67 20 119/69 09/ 1424 97.5 67 20 119/69 100 Room Air 06/12 1400 97.8 60 18 138/74 Physical Exam Skin Temp/Moisture Exam: Warm/Dry Assessment/Plan Assessment: 62 YO F with PMH significant for HTN on HCTZ, active smoking and alcohol consumption presented to [facility] with hearing voices. Recently self-detoxed at home 6 days ago after drinking 6-12 beers a day x 7-10 months, and drank copious amounts of water, roughly 10 small bottles a day whereas normally drinks 5. Is no longer complaining of hallucinations and denies any weakness, tremors, anxiety. Patient transfered from ICU to general medicine. In ICU due to Hypotonic euvolemic hyponatremia, frequent neuro checks given risk of CPM. Low risk of CPM per nephro at this time. 06/13: Patient has safety monitor in place. CANNOT leave AMA does not have the capacity. Monitoring CIWA scores. Monitoring for hallucinations/psychiatric symptoms. Sodium stable at 135 this morning. Still on fluid restriction. PROBLEM LIST: 1. Hypotonic Euvolemic Hyponatremia (improving) 2. Elevated liver enzymes 3. Alcohol abuse 4. Hallucinations on admission - CANNOT leave against medical advice Hyponatremia Sodium on presentation 116. HCTZ held and fluid restricted of 800. Nephrology on board. Correct no more than 8mEq/day. Hyponatremia is due to low solute intake, increased water intake, thiazide diuretic * NA: 135 today * Nephrology on board - out of danger zone at this point; keep on fluid restriction for now * OFF Thiazides permanently Alcohol Abuse * Continue CIWA scores; currently low * folic acid, multivitamin Hallucinations No hallucinations or delusions at this time - patient AAOX3. * Psychiatry on board; keep sitter for now * patient does NOT have capacity to leave AMA * Reorient to prevent sundowning; trazadone 25mg/night * Haldol 2mg IM can be given if patient becomes agitated * CT Head negative for any masses or trauma elvated Liver Enzymes AST at 32 now and ALT at 36. RUQ U/S showed hepatic steatosis with 2 liver cysts. Hepatic panel negative. Code Status: Full Code DVT PPx: Alps Heparin SC Diet: Regular 800ml fluid restriction Problem List: 1. Acute delirium Pain Ratin Pain Location: no pain reported today Pain Goal: Remain pain free Pain Plan: as per pain pathway Tomorrow's Labs & Rationales: n/a Jose Saleem MD 06/13/18 1108: Objective Last 24 Hrs of Vital Signs/I&O Vital Signs Date Time Temp Pulse Resp B/P B/P Pulse O2 O2 Flow FiO2 Mean Ox Delivery Rate 06/13 0742 54 117/66 09 0511 97.9 54 117/66 97 Room Air 06/12 2112 98.3 54 18 124/56 99 Room Air 06/12 1600 97.6 67 20 119/69 09/01 1424 97.5 67 20 119/69 100 Room Air 06/12 1400 97.8 60 18 138/74 09/01 1200 97.8 60 18 138/74 Physical Exam General Appearance: Alert, Oriented X3, Cooperative, No Acute Distress Skin: No Rashes, No Breakdown HEENT: Atraumatic, PERRLA, EOMI Neck: Supple, No JVD Lymphatic: Axillary nl, Cervical nl Cardiovascular: Regular Rate, Normal S1, Normal S2 Lungs: Clear to Auscultation Abdomen: Soft, No Tenderness Current Medications: Current Medications Sig/Melissa Start time Last Medication Dose Route Stop Time Status Admin Acetaminophen 650 MG Q6P PRN 06/07 2015 AC 06/08 PO 2349 Acetaminophen 1,000 MG Q6P PRN 06/07 2015 AC IV Amlodipine Besylate 10 MG DAILY 06/08 09 AC 06/13 PO 0742 Folic Acid 1 MG DAILY 06/08 915 AC 06/13 PO 0742 Heparin Sodium 5,000 UNIT Q8 06/07 2200 AC 06/13 (Porcine) SC 0510 Multivitamins 1 TAB DAILY 06/08 915 AC 06/13 PO 0742 Nicotine 21 MG DAILY 06/08 0900 AC 06/12 TOP 0847 Trazodone HCl 25 MG AT BEDTIME 06/09 2100 AC 06/12 PO 2019 Last 24 Hrs of Lab/Dav Results Last 24 Hrs of Labs/Mics: Laboratory Tests 06/13/18 0620: Anion Gap 4 L, Estimated GFR > 60, BUN/Creatinine Ratio 25.0 Attending MD Review Statement Attending Statement Attending MD Statement: examined this patient Attending Assessment/Plan: This patient is a 62 year old wf with hyponatriemia and alcohol detox. Contine to improve without halucinations. Plans for psychiatry evalution and outpatient IOP. If without halucinations and desire to drink water may be able to remove sitter. Please contact psychiatry for recommendations.
--- NOTE | 2018-06-13 15:45 | PN- Psychiatry ---
Assessment/Plan Impression: Stephen a 62 y/o Female. ETOH Use Dx Severe dep. No evidence of underlying mood disorder. Admitted with MS changes recurrent halucinations. In context of DTs and severe hyponatremia ( due to compulsive drinking water) Pt today presents AAox3 appropiate and reactive affect. No SI/HI. No AVH organized, linear . Good attention span. Recalll 2/. I/J Fair. Suggestion: Pt interested in [facility] at . Will be given info on referral process. No indication for a medication currently. Discussed option of use relapse prevention agents once she is at [facility]. Pt plans to attend AA mtgs and get an sponsor. Subjective Subjective: Bonita is calm and appropiate. Working on a soup letter. Denies any perceptual disturbances. No SI/HI. in a good mood denies any major anxiety. Has awareness on reasons for admit and tx plan. Antsy to leave hospital so she can attend [facility] and mtgs. No ETOH cravings Fair sleep and appetite. Agreeable to stay here till medical team considers appropiate and safe to leave. Review of Systems: Offers no complaints except for some eagerness to start programs for ETOH. Review of Systems Constitutional: Denies: no symptoms. EENTM: Denies: no symptoms. Cardiovascular: Denies: no symptoms. Respiratory: Denies: no symptoms. Gastrointestinal: Denies: no symptoms. Genitourinary: Denies: no symptoms. Musculoskeletal: Denies: no symptoms. Skin: Denies: no symptoms. Neurological/Psychological: Denies: no symptoms. Hematologic/Endocrine: Denies: no symptoms. Immunologic/Allergic: Denies: no symptoms. Objective Last 24 Hrs of Vital Signs/I&O Vital Signs Date Time Temp Pulse Resp B/P B/P Pulse O2 O2 Flow FiO2 Mean Ox Delivery Rate 06/13 1344 98.3 69 18 137/100 100 Room Air 06/13 1200 97.4 60 15 120/60 /02 1000 97.9 54 18 117/60 06/13 0800 97.9 54 18 117/60 09/02 0742 54 117/66 09/ 0511 97.9 54 117/66 97 Room Air 06/12 2112 98.3 54 18 124/56 99 Room Air 06/12 1600 97.6 67 20 119/69 Intake & Output 06/13 1600 09/ 0800 09/ 0000 Intake Total 360 Output Total 300 Balance 60 Intake, Oral 360 Number 0 Bowel Movements Output, Urine 300 Physical Exam General Appearance: well developed/nourished (non applicable. ) Current Medications: Trazodone 25 mg HS PRN anxiety/agitation Results Last 24 Hrs of Labs/Mics: Reviewed. Recent Imaging Studies: n/a
--- NOTE | 2018-06-13 19:20 | Event Note ---
Event Note Event Note: Called by RN to speak with the patient's son. He was concerned that his mother's condition was worsening and that she has not had follow-up with psychiatry since admission. I reviewed the patient's chart and advised the son that there were plans for follow up. Also reviewed her general medical condition (sodium now 135 ). I spoke with Dr. Haskins from psychiatry and she advised me she was coming to see the patient for a brief visit today and would have a more thorough follow-up tomorrow.
[2018-06-14 07:25] VITALS: BP 136/55
--- NOTE | 2018-06-14 07:43 | PN- Housestaff ---
Subjective Follow-up For: Hyponatremia Etoh withdrawal Subjective: Seen and examined while seated comfortably on a recliner. Currently she does not endorse any confusion, altered mental status, hallucination. Her CIWA scores has remained "0" for the past few days. Patient's son is at bedside, who in conjunction with the patient have expressed their strong desire for the patient to discharge to home with IOP. Patient is not amenable to any discussion of inpatient psych. Review of Systems Constitutional: Reports: no symptoms. Objective Last 24 Hrs of Vital Signs/I&O Vital Signs Date Time Temp Pulse Resp B/P B/P Pulse O2 O2 Flow FiO2 Mean Ox Delivery Rate 06/14 08 105 144/73 06/14 0725 97.9 55 18 136/55 97 / 2129 98.0 58 18 120/75 97 Room Air 06/13 1800 98.3 69 18 137/100 06/13 1600 98.3 69 18 137/100 06/13 1400 98.3 69 18 137/100 /02 1344 98.3 69 18 137/100 100 Room Air 06/13 1200 97.4 60 15 120/60 Intake & Output 06/14 1600 06/14 0800 06/14 0000 Intake Total 40 240 Output Total Balance 40 240 Intake, Oral 40 240 Physical Exam General Appearance: Alert, Oriented X3, Cooperative Skin: No Significant Lesion Cardiovascular: Regular Rate, Normal S1, Normal S2 Lungs: Clear to Auscultation, Normal Air Movement Abdomen: Normal Bowel Sounds, Soft, No Tenderness Neurological: Normal Gait, Normal Speech, Strength at 5/5 X4 Ext, Normal Tone, Sensation Intact, Cranial Nerves 3-12 NL, Reflexes 2+ Assessment/Plan Assessment: 62 yo lady with history of hypertension, smoking, ethanal abuse, on hctz admitted with change in mental status in the setting of a sodium level of 116. Her AMS consisted of hearing voices. She norally drinks 6-12 beers per day but stopped several days before admission, she also endorsed drinking copouis amount of water. Pt was intially admitted to ICU managed by 800 ml fluid restriction and cessation of her hctz. Pt was later transfeered to gen med once her sodium improved and stablized. PROBLEM LIST: 1. Hyponatremia, resolved. 2. Elevated liver enzymes, resolved. 3. Alcohol abuse Assessment and plan Patient's sodium is normalized and today level is 139. Clinically she appears stable with no altered mental status such as hallucination or confusion. A fluid restriction of 800 mils a day and cessation of hydrochlorothiazide seems to have helped with correction of her hyponatremia. The etiology of her hyponatremia is multifactorial given her decreased solute intake (tea and toast phenomena?), precipitated by drinking copious amount of free water and use of hydrochlorothiazide. Given that her sodium level is now 139, will liberalize the fluid restriction to 1200ml upon discharge with instructions not to take hydrochlorothiazide anymore. Regarding her alcohol use, she was seen by psych and one of the suggestion was for her to follow-up with outpatient intensive psych program in addition to her AA meetings with sponsor. Patient and her family are adamant about not wanting any inpatient psych option. It is noted that the patient does not have a primary care physician, the medical team provided a [facility] physician referral, patient opted for Dia Peña MD who also happens to be the son's PCP. Given that the patient is medically stable with normalized sodium levels and the desire of the patient and family to be discharged today, will discharge patient with instructions to follow-up with [facility] and Dr. Peña (contact info given). Problem List: 1. Hyponatremia 2. Alcohol withdrawal Pain Ratin Pain Location: none Pain Goal: Remain pain free Pain Plan: per pathway Tomorrow's Labs & Rationales: none-discharge
[2018-06-14 08:00] VITALS: BP 140/70
[2018-06-14 10:00] VITALS: BP 140/70
--- NOTE | 2018-06-14 10:46 | Patient Discharge Instructions ---
Discharge Instructions General Discharge Information You were seen/treated for: Hyponatremia Special Instructions: Please maintain a fluid restriction of 1200ml/day for now until you see a primary care physician Please follow set up an appointment with a primary care within 1 week Your hydrochlorothiazide (water pill) was stopped due to the low sodium Please call to set up for intensive outpatient psych program. Please follow up with AA meeting with sponsor as planned. Acute Coronary Syndrome Inclusion Criteria At DC or during hospital stay patient has or had the following: Discharge Core Measures Meds if any: Prescribed or Continued at Discharge Meds if any: NOT Prescribed or Continued at Discharge Congestive Heart Failure Inclusion Criteria At DC or during hospital stay patient has or had the following: Discharge Core Measures Meds if any: Prescribed or Continued at Discharge Meds if any: NOT Prescribed or Continued at Discharge Cerebrovascular accident Inclusion Criteria At DC or during hospital stay patient has or had the following: CVA/TIA Diagnosis No Discharge Core Measures Meds if any: Prescribed or Continued at Discharge Meds if any: NOT Prescribed or Continued at Discharge Venous thromboembolism Discharge Core Measures - Per Current guidelines, there needs to be overlap - treatment for the first 5 days of Warfarin therapy. - If discharged on Warfarin prior to 5 days of - overlap therapy, the patient will need to be - assessed for post discharge needs including - *Post discharge parental anticoagulation - *Warfarin and/or parental anticoagulation education - *Follow up date to check INR post discharge Meds if any: Prescribed or Continued at Discharge Note: Overlap Therapy is Warfarin and Anticoagulant Meds if any: NOT Prescribed or Continued at Discharge
== END 2018-06-14 11:46 | DRG 426 ==
LOC: ERH 18:12 → CRI 19:50 → ERHI 19:50 → ENRESERV 21:27 → ENTRNSPT 22:06 → EDTRNSPTSTS 22:09 → EDTRNSPT 22:09 → CRI 22:17 → CMPTRNSPT 22:28 → CRI 06-10 07:57 → ENTRNSPT 06-11 08:20 → EDTRNSPT 06-11 08:42 → EDTRNSPTSTS 06-11 08:42 → 2NB 06-11 08:50 → CMPTRNSPT 06-11 09:04 → 2NB 06-11 09:46 → ENPENDDIS 06-14 11:25 → ENTRNSPT 06-14 11:38 → 2NB 06-14 11:46 → EDTRNSPT 06-14 11:46 → EDTRNSPTSTS 06-14 11:46 → CMPTRNSPT 06-14 11:55
PROVIDERS: Emergency Medicine; Internal Medicine
DX: E87.1 Hypo-osmolality and hyponatremia (principal); R44.0 Auditory hallucinations; Y90.0 Blood alcohol level of less than 20 mg/100 ml; E87.6 Hypokalemia; E87.3 Alkalosis; F17.210 Nicotine dependence, cigarettes, uncomplicated; Z88.0 Allergy status to penicillin; I10 Essential (primary) hypertension; R79.89 Other specified abnormal findings of blood chemistry; F10.231 Alcohol dependence with withdrawal delirium
CPT/HCPCS: 2NBSP; 84133; 84300; CCU; 36415; 36592; 71045; 80307; 81001; 82436; 82570; 83010; 87086; 93005; 93010; 96374; 96375; 99291; G0480; J0610; J1644; J1815; J2597; J3490; J7060